=== PATIENT | male | born 1930 | race Caucasian/White ===

== ENCOUNTER 2016-09-21 15:23 | Emergency (ER) | payer MEDICARE, OTHER ==
[~2016-09-21 15:23] MED LIST: /NITR4TASL SL; ATOR40TA PO; AUGM875T27 PO; FLAG500T PO; GLIM1TAB PO; LIPI20TA PO; METF-700 PO; NORCOTAB PO; ONDA1TAB15 PO; PRAD150C PO; RAMI10CA PO; TYLE325T5 PO; [UNRECOGNIZED DRUG - CODE] PO
[2016-09-21] MEDS ORDERED: ONDANSETRON 4MG/2ML VIAL (J2405) As Ordered ONE ×2 (15:57→16:35)
[2016-09-21] MEDS ORDERED: MORPHINE 4 MG/ML 1ML SYRINGE As Ordered ONE (15:57)
[2016-09-21 16:17] LABS: BASO # 0.2 K/mm3 (0.0-0.2); BASO % 1.4 % (0.0-1.0); EOS # 0.1 K/mm3 (0.0-0.50); EOS % 0.8 % (0.0-3.0); LARGE UNSTAINED CELL # 0.2 K/mm3 (0.0-0.4); LARGE UNSTAINED CELL % 1.3 % (0.0-4.0); LYMPH % 6.1 % (24.0-44.0); MEAN CORPUSCULAR HEMOGLOBIN 33.5 pg (27.0-33.0); MEAN CORPUSCULAR HGB CONC 33.8 g/dl (32.0-36.5); MONO # 0.6 K/mm3 (0.0-0.8); MONO % 4.8 % (0.0-5.0); NEUTROPHILS # 11.2 K/mm3 (1.8-7.7); NEUTROPHILS % 85.7 % (36.0-66.0); PLATELET COUNT, AUTOMATED 218 k/mm3 (150-450); RED CELL DISTRIBUTION WIDTH 14.1 % (11.5-14.5); WHITE BLOOD COUNT 13.1 K/mm3 (4.0-10.0)
[2016-09-21 16:32] LABS: ALBUMIN 3.6 GM/DL (3.2-5.2); ALBUMIN/GLOBULIN RATIO 1.33 (1.00-1.93); BILIRUBIN,DIRECT 0.3 MG/DL (0.0-0.2); BILIRUBIN,TOTAL 1.6 MG/DL (0.2-1.0); CALCIUM LEVEL 8.3 MG/DL (8.8-10.2); CREATININE FOR GFR 1.37 MG/DL (0.70-1.30); GLOMERULAR FILTRATION RATE 52.7 (>35); POTASSIUM SERUM 4.2 MEQ/L (3.5-5.1); TOTAL PROTEIN 6.3 GM/DL (6.4-8.2)
[2016-09-21] MEDS ORDERED: GASTROGRAFIN SOLUTION 30ML (Q9963) As Ordered ONE (16:50)
[2016-09-21] MEDS ORDERED: ISOVUE-370 76% 100ML VIAL (Q9967) As Ordered ONE (18:31)
--- NOTE | 2016-09-21 20:50 | REPUSA ---
CLINICAL HISTORY: Abdomen pain. TECHNIQUE: Multiple axial CT images were obtained through the abdomen and pelvis after administratio n of oral and intravenous contrast material. COMMENTS: Comparison is made with the prior study dated 09/06/2016. Note is made of several hypoenhancing hepatic lesions, some demonstrates partial peripheral interrupt ed nodular enhancement most compatible with hemangiomas. There is no intra or extrahepatic biliary d uctal dilatation. The spleen is normal. Several calcified gallstones are present. The pancreas is of normal contour and attenuation characteristics. There is no evidence of adrenal mass. Left perin ephric stranding is seen. Several small bilateral cortical renal cysts are present. Both kidneys demonstrate prompt and equal nephrograms. The kidneys are normal in size, shape and con figuration. There is no evidence of renal or ureteral mass. A 4.5 x 3.5 mm calculus is present in t he distal left ureter just several centimeter above the UVJ. It producing mild to moderate hydrourete ronephrosis. Left perinephric stranding is seen. Several small bilateral cortical renal cysts are pr esent. Patient is status post appendectomy. Residual inflammatory stranding is noted in right lower quadran t. Diffuse sigmoid diverticulosis is present. There is no bowel wall thickening. No evidence for sm all or large bowel obstruction. There is no evidence of abdominal ascites or lymphadenopathy. There is sigmoid diverticulosis without definite evidence of acute diverticulitis. There is no evidence of intrinsic or extrinsic bladder mass. There is no pelvic ascites or lymphaden opathy. Images of the lung bases show no evidence of pleural or parenchymal mass. There are no pleural effus ions. Pacemaker leads are present. Bibasilar scarring is noted. Prostate gland is severely enlarged measuring 7 cm contains calcification. The bony structures are free of lytic or blastic lesions. Multilevel degenerative changes are seen i nvolving the thoracolumbar spine. Scattered calcifications are seen involving the aorta and major branches compatible with atherosclero sis. Small hiatal hernia is seen. IMPRESSION: 1. Distal left ureteral calculus which is producing hydroureteronephrosis. 2. Status post appendicectomy. 3. Cholelithiasis. 4. Massive prostatomegaly. 5. Small hiatal hernia is seen. 6. Liver appears lobulated suggesting cirrhosis. Hepatic lesion as discussed above may represent he mangiomas although consider short term follow up. Thank you for your kind referral of this patient. We appreciate the opportunity to participate in [facility] s patient's care.
[2016-09-21] MEDS ORDERED: TAMSULOSIN 0.4 MG CAP As Ordered ONE (22:22)
--- NOTE | 2016-09-21 22:36 | EDDOCDS ---
Nurse's Notes [facility] Name: Silvino Regan Age: 86 yrs Sex: Male : 1930 Arrival Date: 09/21/2016 Time: 15:23 Bed 17 Private MD: Mack Rothman R. Diagnosis: Calculus of ureter Presentation: 09/21 15:25 Presenting complaint: Child states: n/v, abdominal pain, onset today. appendectomy done ead a few days before July. Daughter reports bruising to abdomen and bleeding from incisions. Surgery done by Dr. Neil. Adult Sepsis Screening: The patient does not have new or worsening altered mentation. Patient's respiratory rate is less than 22. Systolic blood pressure is greater than 100. Patient has a qSOFA score of 0- Negative Sepsis Screen. Suicide/Homicide risk assessment- the patient denies having any suicidal and/or homicidal ideations and does not present with any other emotional, behavioral or mental health complaints. Status: Patient is not a central services tech or dependent. Transition of care: patient was not received from another setting of care. 15:25 Acuity: ROMÁN Level 3 ead 15:25 Method Of Arrival: Walkin/Carried/Asstd ead 16:28 Presenting complaint: daughter reports patient had stopped antibiotic at some point. kr3 Triage Assessment: 15:31 General: Appears in no apparent distress, comfortable, well nourished, well groomed, ead Behavior is appropriate for age, cooperative, pleasant. Pain: Location: abdomen Pain currently is 5 out of 10 on a pain scale. Neurological: Level of Consciousness is awake, alert, obeys commands, Oriented to person, place, time. Respiratory: Airway is patent Respiratory effort is even, unlabored. GI: Reports lower abdominal pain, nausea, vomiting. Derm: Skin is pink, warm & dry. Historical: - Allergies: no known allergies; - Home Meds: 1. atorvastatin 40 mg oral tab 1 tab once daily (Last dose: 09/20/2016) 2. glimepiride 1 mg Oral tab 1 tab once daily (Last dose: 09/20/2016) 3. metformin 500 mg Oral tab 2 tabs nightly (Last dose: 09/20/2016) 4. ramipril 10 mg Oral cap 1 cap once daily (Last dose: 09/20/2016) 5. metronidazole 500 mg Oral tab 1 tab 3 times per day 6. hydrocodone-acetaminophen 5-325 mg Oral tab every 4-6 hours (Last dose: 09/21/2016 15:00) 7. amoxicillin-pot clavulanate 875-125 mg Oral tab every 12 hours - PMHx: Diabetes - NIDDM: controlled; Hypercholesterolemia; Hypertension; SD; - PSHx: Pacemaker Insertion; CABAG x 5; - Social history: Smoking status: Patient states former smoker of tobacco. No barriers to communication noted, The patient speaks fluent Bolivian, Speaks appropriately for age. - Family history: Not pertinent. - : The pt / caregiver states he / she is not on anticoagulants. Home medication list is obtained from family members, pill bottles. - Exposure Risk Screening:: None identified. Screenin:28 Screening information is obtained from the patient, family members. Fall risk: No risks kr3 identified. Assistance ADL's: requires no assistance with activities of daily living. Abuse/DV Screen: The patient / caregiver reports he/she is: not in a situation that causes fear, pain or injury. Nutritional screening: No deficits noted. Advance Directives: Currently, there is a health care proxy, daughter. There is an active Power of Slip Laster, daughter. home support is adequate. Assessment: 15:44 General: Appears in no apparent distress, comfortable. Pain: Location: abdomen Pain kr3 currently is 4 out of 10 on a pain scale. Quality of pain is described as crampy, Pain began this afternoon. Neurological: Level of Consciousness is awake, alert. Respiratory: Respiratory effort is even, unlabored. GI: Abdomen is obese, other bruising across abdomen Bowel sounds present X 4 quads. Abd is soft and non tender. GI: Reports nausea, vomiting, several formed bowel movements this afternoon Denies constipation, diarrhea. Derm: Skin is normal. 16:27 Reassessment: Patient appears in no apparent distress at this time. reports no change kr3 in pain, denies nausea. 16:35 Reassessment: complains of return of nausea and having dry heaves, Dr Cade notified. kr3 17:49 Reassessment: Patient appears in no apparent distress at this time. tolerated CT kr3 contrast with no difficulty. GI: Denies nausea. 18:28 General: Appears states pain has essentially resolved, maybe .5/10. without nausea. jmk pleasant and conversive. comfort measures provided. awaiting CT avail.. 22:33 General: Appears in no apparent distress, comfortable. Pain: Denies pain. Neurological: mb9 Level of Consciousness is awake, alert. Respiratory: Airway is patent Respiratory effort is even, unlabored. : Reports urinary frequency. Vital Signs: 15:24 BP 174 / 84; Pulse 74; Resp 16; Temp 97; Pulse Ox 95% ; Weight 92.08 kg (M); Height 5 cmb ft. 10 in. (177.80 cm); Pain 5/10; 18:28 BP 147 / 81; Pulse 70; Resp 16; jmk 22:25 BP 147 / 82 (auto/); Pulse 69; Resp 17; Temp 97.2(O); mb9 22:27 Pulse Ox 94% ; mb9 15:24 Body Mass Index 29.13 (92.08 kg, 177.80 cm) cmb Vitals: 15:24 Log In Time: September 21, 2016 at 15:22. cmb ED Course: 15:24 Patient visited by Anayeli Marin. cmb 15:24 Mack Rothman is Private Physician. cmb 15:24 Patient moved to Waiting cmb 15:25 Patient moved to Pre RCE cmb 15:29 Triage Initiated ead 15:33 Patient moved to 17 ead 15:38 Juan Cade MD is Attending Physician. br1 15:46 The patient / caregiver is instructed regarding the plan of care and ED course. kr3 Accompanied by Family Member, Patient has correct armband on for positive identification. Placed in gown. Bed in low position. Call light in reach. Side rails up X 1. 15:54 Patient visited by Jaun Cade MD. br1 16:03 Lipase Sent. kr3 16:03 Liver Profile Sent. kr3 16:03 BMP Sent. kr3 16:03 CBC with Diff Sent. kr3 16:04 Inserted saline lock: 20 gauge in right antecubital area and blood collected. The kr3 patient tolerated the procedure well. 16:27 Patient visited by Ximena Samuel PCA. jlf 16:31 Patient name changed from Silvino\S\Mick\S\Regan\S\ to Silvino\S\J\S\Regan. EDMS 16:35 [facility] Payment Agreement was scanned into [employer] and attached to record. jpb 17:00 Patient visited by Ximena Samuel PCA. jlf 17:44 Patient visited by Ximena Samuel PCA. jlf 18:30 Patient visited by Filemon Ross,RN. jmk 19:03 Patient visited by Ambika Eubanks,RN. kr3 19:45 Deandra Hogan,RN is Primary Nurse. jp6 20:33 Patient visited by Sally Rhoades, Space Studies Faculty Member. jlm 21:03 Patient visited by Juan Cade MD. br1 21:34 CT ABD & PELVIS: IV and Oral Contrast Returned. EDMS 21:59 Patient visited by Juan Cade MD. br1 22:08 Mack Rothman is Referral Physician. br1 22:09 Roni Dow is Referral Physician. br1 22:25 Discontinued IV lock intact, bleeding controlled, pressure dressing applied. No mb9 procedures done that require assistance. Administered Medications: 16:05 Drug: Ondansetron 4 mg Route: IVP; Site: right antecubital; k 16:28 Follow up: Response: Nausea is resolved kr3 16:06 Drug: NS 0.9% 1000 ml Route: IV; Rate: 150 mL/hr; Site: right antecubital; jmk 16:06 Drug: morphine 4 mg Route: IVP; Site: right antecubital; k 16:28 Follow up: Response: No significant change. kr3 16:38 Drug: Ondansetron 4 mg [ondansetron HCl 2 mg/mL intravenous solution (2 mL)] Route: kr3 IVP; Site: right antecubital; 16:56 Follow up: Response: Nausea is decreased kr3 16:55 Drug: Diatrizoate Meglumine & Sodium 10 ml [diatrizoate meglumine and diat.sodium 66 kr3 %-10 % oral solution (10 mL)] Route: PO; 17:30 Drug: Diatrizoate Meglumine & Sodium 10 ml [diatrizoate meglumine and diat.sodium 66 kr3 %-10 % oral solution (10 mL)] Route: PO; 22:32 Drug: Tamsulosin 0.4 mg [tamsulosin 0.4 mg capsule (1 caps)] Route: PO; mb9 Order Results: Lab Order: CBC with Diff; SPEC'M 09/21/16 15:58 Test: WHITE BLOOD COUNT; Value: 13.1; Range: 4.0-10.0; Abnormal: Above high normal; Units: K/mm3; Status: F Test: RED BLOOD COUNT; Value: 3.90; Range: 4.30-6.10; Abnormal: Below low normal; Units: M/mm3; Status: F Test: HEMOGLOBIN; Value: 13.0; Range: 14.0-18.0; Abnormal: Below low normal; Units: g/dl; Status: F Test: HEMATOCRIT; Value: 38.6; Range: 42.0-52.0; Abnormal: Below low normal; Units: %; Status: F Test: MEAN CORPUSCULAR VOLUME; Value: 99.0; Range: 80.0-96.0; Abnormal: Above high normal; Units: fl; Status: F Test: MEAN CORPUSCULAR HEMOGLOBIN; Value: 33.5; Range: 27.0-33.0; Abnormal: Above high normal; Units: pg; Status: F Test: MEAN CORPUSCULAR HGB CONC; Value: 33.8; Range: 32.0-36.5; Units: g/dl; Status: F Test: RED CELL DISTRIBUTION WIDTH; Value: 14.1; Range: 11.5-14.5; Units: %; Status: F Test: PLATELET COUNT, AUTOMATED; Value: 218; Range: 150-450; Units: k/mm3; Status: F Test: NEUTROPHILS %; Value: 85.7; Range: 36.0-66.0; Abnormal: Above high normal; Units: %; Status: F Test: LYMPH %; Value: 6.1; Range: 24.0-44.0; Abnormal: Below low normal; Units: %; Status: F Test: MONO %; Value: 4.8; Range: 0.0-5.0; Units: %; Status: F Test: EOS %; Value: 0.8; Range: 0.0-3.0; Units: %; Status: F Test: BASO %; Value: 1.4; Range: 0.0-1.0; Abnormal: Above high normal; Units: %; Status: F Test: LARGE UNSTAINED CELL %; Value: 1.3; Range: 0.0-4.0; Units: %; Status: F Test: NEUTROPHILS #; Value: 11.2; Range: 1.8-7.7; Abnormal: Above high normal; Units: K/mm3; Status: F Test: LYMPH #; Value: 1.0; Range: 1.5-4.5; Abnormal: Below low normal; Units: K/mm3; Status: F Test: MONO #; Value: 0.6; Range: 0.0-0.8; Units: K/mm3; Status: F Test: EOS #; Value: 0.1; Range: 0.0-0.50; Units: K/mm3; Status: F Test: BASO #; Value: 0.2; Range: 0.0-0.2; Units: K/mm3; Status: F Test: LARGE UNSTAINED CELL #; Value: 0.2; Range: 0.0-0.4; Units: K/mm3; Status: F Lab Order: [facility] 09/21/16 15:58 Test: GLUCOSE, FASTING; Value: 143; Range: 83-110; Abnormal: Above high normal; Units: MG/DL; Status: F Test: BLOOD UREA NITROGEN; Value: 16; Range: 7-18; Units: MG/DL; Status: F Test: CREATININE FOR GFR; Value: 1.37; Range: 0.70-1.30; Abnormal: Above high normal; Units: MG/DL; Status: F Test: GLOMERULAR FILTRATION RATE; Value: 52.7; Range: >35; Status: F Test: SODIUM LEVEL; Value: 141; Range: 136-145; Units: MEQ/L; Status: F Test: POTASSIUM SERUM; Value: 4.2; Range: 3.5-5.1; Units: MEQ/L; Status: F Test: CHLORIDE LEVEL; Value: 104; Range: 98-107; Units: MEQ/L; Status: F Test: CARBON DIOXIDE LEVEL; Value: 28; Range: 21-32; Units: MEQ/L; Status: F Test: ANION GAP; Value: 9; Range: 8-16; Units: MEQ/L; Status: F Test: CALCIUM LEVEL; Value: 8.3; Range: 8.8-10.2; Abnormal: Below low normal; Units: MG/DL; Status: F Test Note: ; Units are mL/min/1.73 m2 Chronic Kidney Disease Staging per NKF: Stage I & II GFR >=60 Normal to Mildly Decreased Stage III GFR 30-59 Moderately Decreased Stage IV GFR 15-29 Severely Decreased Stage V GFR <15 Very Little GFR Left ESRD GFR <15 on FLIGHT SIMULATOR TEACHER Lab Order: Liver Profile; SPEC'M 09/21/16 15:58 Test: AST/SGOT; Value: 21; Range: 15-37; Units: U/L; Status: F Test: ALT/SGPT; Value: 30; Range: 12-78; Units: U/L; Status: F Test: ALKALINE PHOSPHATASE; Value: 74; Range: 45-117; Units: U/L; Status: F Test: BILIRUBIN,TOTAL; Value: 1.6; Range: 0.2-1.0; Abnormal: Above high normal; Units: MG/DL; Status: F Test: BILIRUBIN,DIRECT; Value: 0.3; Range: 0.0-0.2; Abnormal: Above high normal; Units: MG/DL; Status: F Test: TOTAL PROTEIN; Value: 6.3; Range: 6.4-8.2; Abnormal: Below low normal; Units: GM/DL; Status: F Test: ALBUMIN; Value: 3.6; Range: 3.2-5.2; Units: GM/DL; Status: F Test: ALBUMIN/GLOBULIN RATIO; Value: 1.33; Range: 1.00-1.93; Status: F Lab Order: Lipase; SPEC'M 09/21/16 15:58 Test: LIPASE; Value: 118; Range: 73-393; Units: U/L; Status: F Lab Order: Urinalysis; SPEC'M 09/21/16 20:29 Test: APPEARANCE, URINE; Value: CLEAR; Range: CLEAR; Status: F Test: COLOR, URINE; Value: YELLOW; Range: YELLOW; Status: F Test: PH,URINE; Value: 7.0; Range: 5.0-9.0; Units: UNITS; Status: F Test: SPECIFIC GRAVITY URINE AUTO; Value: 1.043; Range: 1.002-1.035; Status: F Test: PROTEIN, URINE AUTO; Value: NEGATIVE; Range: NEGATIVE; Units: mg/dL; Status: F Test: GLUCOSE, URINE (UA) AUTO; Value: NEGATIVE; Range: NEGATIVE; Units: mg/dL; Status: F Test: KETONE, URINE AUTO; Value: NEGATIVE; Range: NEGATIVE; Units: mg/dL; Status: F Test: UROBILINOGEN, URINE AUTO; Value: 0.2; Range: 0.0-2.0; Units: mg/dL; Status: F Test: BILIRUBIN, URINE AUTO; Value: NEGATIVE; Range: NEGATIVE; Status: F Test: NITRITE, URINE AUTO; Value: NEGATIVE; Range: NEGATIVE; Status: F Test: LEUKOCYTE ESTERASE, URINE AUTO; Value: 1+; Range: NEGATIVE; Abnormal: Above high normal; Status: F Test: BLOOD, URINE BLOOD; Value: 2+; Range: NEGATIVE; Abnormal: Above high normal; Status: F Test: WBC, URINE AUTO; Value: 8; Range: 0-3; Abnormal: Above high normal; Units: /HPF; Status: F Test: RBC, URINE AUTO; Value: 27; Range: 0-3; Abnormal: Above high normal; Units: /HPF; Status: F Test: BACTERIA, URINE AUTO; Value: NEGATIVE; Range: NEGATIVE; Status: F Test: SQUAMOUS EPITHELIAL CELL UR AU; Value: 0; Range: 0-6; Units: /HPF; Status: F Test: HYALINE CAST, URINE AUTO; Value: 0; Range: 0-1; Units: /LPF; Status: F Radiology Order: CT ABD & PELVIS: IV and Oral Contrast Test: CT ABD & PELVIS: IV and Oral Contrast REASON FOR EXAMINATION: Abdomen Pain; ; CLINICAL HISTORY: Abdomen pain.; ; TECHNIQUE: Multiple axial CT images were obtained through the abdomen and pelvis after administratio; n of oral and intravenous contrast material.; ; COMMENTS:; Comparison is made with the prior study dated 09/06/2016.; ; Note is made of several hypoenhancing hepatic lesions, some demonstrates partial peripheral interrupt; ed nodular enhancement most compatible with hemangiomas. There is no intra or extrahepatic biliary d; uctal dilatation. The spleen is normal. Several calcified gallstones are present. The pancreas is; of normal contour and attenuation characteristics. There is no evidence of adrenal mass. Left perin; ephric stranding is seen. Several small bilateral cortical renal cysts are present.; ; Both kidneys demonstrate prompt and equal nephrograms. The kidneys are normal in size, shape and con; figuration. There is no evidence of renal or ureteral mass. A 4.5 x 3.5 mm calculus is present in t; he distal left ureter just several centimeter above the UVJ. It producing mild to moderate hydrourete; ronephrosis. Left perinephric stranding is seen. Several small bilateral cortical renal cysts are pr; esent.; ; Patient is status post appendectomy. Residual inflammatory stranding is noted in right lower quadran; t. Diffuse sigmoid diverticulosis is present. There is no bowel wall thickening. No evidence for sm; all or large bowel obstruction. There is no evidence of abdominal ascites or lymphadenopathy. There; is sigmoid diverticulosis without definite evidence of acute diverticulitis.; ; There is no evidence of intrinsic or extrinsic bladder mass. There is no pelvic ascites or lymphaden; opathy.; ; Images of the lung bases show no evidence of pleural or parenchymal mass. There are no pleural effus; ions. Pacemaker leads are present. Bibasilar scarring is noted.; ; Prostate gland is severely enlarged measuring 7 cm contains calcification.; ; The bony structures are free of lytic or blastic lesions. Multilevel degenerative changes are seen i; nvolving the thoracolumbar spine.; ; Scattered calcifications are seen involving the aorta and major branches compatible with atherosclero; sis.; ; Small hiatal hernia is seen.; ; IMPRESSION:; 1. Distal left ureteral calculus which is producing hydroureteronephrosis.; 2. Status post appendicectomy.; 3. Cholelithiasis.; 4. Massive prostatomegaly.; 5. Small hiatal hernia is seen.; 6. Liver appears lobulated suggesting cirrhosis. Hepatic lesion as discussed above may represent he; mangiomas although consider short term follow up.; ; ; Thank you for your kind referral of this patient. We appreciate the opportunity to participate in thi; s patient's care.; ; ; Outcome: 19:02 CT Study completed. kr3 22:10 Discharge ordered by Provider. br1 22:25 Discharge Assessment: Patient awake, alert and oriented x 3. No cognitive and/or mb9 functional deficits noted. Patient verbalized understanding of disposition instructions. patient administered narcotics - no. The following High Risk Discharge criteria are identified: None. Discharged to home ambulatory. Condition: good Condition: stable Condition: improved. Discharge instructions given to patient, Instructed on discharge instructions, follow up and referral plans. medication usage, Demonstrated understanding of instructions, medications, Pt was receptive of discharge instructions/ teaching. Prescriptions given X 2. Property :Personal belongings accompany Pt. 22:34 Instructed on Pt instructed to not take his metformin for 48 hours. pt [facility] for further guidance in regards to his metformin. 22:36 Patient left the ED. jarod Signatures: Dispatcher [employer] EDMS Filemon Ross,RN RN Ambika Messer,RN RN kr3 Juan Cade MD MD br1 Ryne Rich Chelsea cmXimena Cáhvez, TERRITORY ACCOUNT EXECUTIVE TERRITORY ACCOUNT EXECUTIVE estradaf Shi Rankin,RN RN Sally Connolly, Space Studies Faculty Member Unit Mak PatrickRN RN mb9 Deandra Hogan,RN RN jp6 [facility]
--- NOTE | 2016-09-21 22:36 | EDDOCDS ---
Physician Documentation [facility] Name: Silvino Regan Age: 86 yrs Sex: Male : 1930 Arrival Date: 09/21/2016 Time: 15:23 Bed 17 Private MD: Mack Rothman R. Disposition: 09/21/16 22:10 Discharged to Home/Self Care. Impression: Calculus of ureter. - Condition is Stable. - Discharge Instructions: Kidney Stones. - Prescriptions for Flomax 0.4 mg Oral Capsule, Sust. Release 24 hr - take 1 capsule by ORAL route once daily 1/2 hour following the same meal each day; 30 capsule. ZOFRAN ODT 4 mg - dissolve 1 tablet by ORAL route 4 times per day As needed do not chew, do not swallow whole; 10 tablet. - Medication Reconciliation, Local Pharmacy Hours form. - Follow up: Mack Rothman; When: 2 - 3 days; Reason: Recheck today's complaints. Follow up: Roni Dow; When: 2 - 3 days; Reason: Recheck today's complaints. - Problem is new. - Symptoms have improved. - Notes: You were seen in the ED for abdominal pain. Bloodwork along with urine tests showed no acute findings but CT scan of the abdomen revealed a kidney stone nearing the bladder on the left side. We have discussed the case with Urology as well.
As you are feeling better you may return home. Encourage plenty of fluids and take the medicine Flomax daily to assist in passing the stone. You may take Zofran as needed for nausea. You may continue your hydrocodone as needed for pain. Call the Urology office in the morning to be seen for ongoingcare. Return to the ED for any worsening or uncontrolled pain, fever, inability to tolerate oral foods or lquids or any other concerns Historical: - Allergies: no known allergies; - Home Meds: 1. atorvastatin 40 mg oral tab 1 tab once daily (Last dose: 09/20/2016) 2. glimepiride 1 mg Oral tab 1 tab once daily (Last dose: 09/20/2016) 3. metformin 500 mg Oral tab 2 tabs nightly (Last dose: 09/20/2016) 4. ramipril 10 mg Oral cap 1 cap once daily (Last dose: 09/20/2016) 5. metronidazole 500 mg Oral tab 1 tab 3 times per day 6. hydrocodone-acetaminophen 5-325 mg Oral tab every 4-6 hours (Last dose: 09/21/2016 15:00) 7. amoxicillin-pot clavulanate 875-125 mg Oral tab every 12 hours - PMHx: Diabetes - NIDDM: controlled; Hypercholesterolemia; Hypertension; SC; - PSHx: Pacemaker Insertion; CABAG x 5; - Social history: Smoking status: Patient states former smoker of tobacco. No barriers to communication noted, The patient speaks fluent German, Speaks appropriately for age. - Family history: Not pertinent. - : The pt / caregiver states he / she is not on anticoagulants. Home medication list is obtained from family members, pill bottles. - Exposure Risk Screening:: None identified. Vital Signs: 09/21 15:24 BP 174 / 84; Pulse 74; Resp 16; Temp 97; Pulse Ox 95% ; Weight 92.08 kg / 203 lbs (M); cmb Height 5 ft. 10 in. (177.80 cm); Pain 5/10; 18:28 BP 147 / 81; Pulse 70; Resp 16; jmk 22:25 BP 147 / 82 (auto/); Pulse 69; Resp 17; Temp 97.2(O); mb9 22:27 Pulse Ox 94% ; mb9 15:24 Body Mass Index 29.13 (92.08 kg, 177.80 cm) cmb MDM: 15:55 IV Saline Lock ordered. br1 15:55 NS 0.9% 1000 ml IV at 150 mL/hr continuous ordered. br1 15:55 morphine 4 mg IVP once ordered. br1 15:55 Ondansetron 4 mg IVP once ordered. br1 15:56 CBC with Diff Ordered. EDMS 15:56 BMP Ordered. EDMS 15:56 Liver Profile Ordered. EDMS 15:56 Lipase Ordered. EDMS 16:04 Urinalysis Ordered. EDMS 16:04 Urine Culture Ordered. EDMS 16:09 Financial registration complete. jpb 16:09 Undo -Financial registration. jpb 16:34 Financial registration complete. jpb 16:35 [facility] Payment Agreement was scanned into dateIITians and attached to record. jpb 16:36 Ondansetron 4 mg IVP once ordered. br1 16:36 CBC with Diff Reviewed. br1 16:36 BMP Reviewed. br1 16:36 Liver Profile Reviewed. br1 16:36 Lipase Reviewed. br1 16:38 CT ABD & PELVIS: IV and Oral Contrast Ordered. EDMS 16:49 Diatrizoate Meglumine & Sodium Liquid 10 ml PO once; mix in 290cc of water give at 5PM kr3 ordered. 16:49 Diatrizoate Meglumine & Sodium Liquid 10 ml PO once; mix in 290cc of water give at kr3 5:30PM ordered. 20:58 Urinalysis Reviewed. br1 21:04 Fluid Challenge ordered. br1 22:04 Tamsulosin Extended Release 24 hour Capsule 0.4 mg PO once ordered. br1 Administered Medications: 16:05 Drug: Ondansetron 4 mg Route: IVP; Site: right antecubital; [facility] 16:28 Follow up: Response: Nausea is resolved kr3 16:06 Drug: NS 0.9% 1000 ml Route: IV; Rate: 150 mL/hr; Site: right antecubital; [facility] 16:06 Drug: morphine 4 mg Route: IVP; Site: right antecubital; [facility] 16:28 Follow up: Response: No significant change. kr3 16:38 Drug: Ondansetron 4 mg [ondansetron HCl 2 mg/mL intravenous solution (2 mL)] Route: kr3 IVP; Site: right antecubital; 16:56 Follow up: Response: Nausea is decreased kr3 16:55 Drug: Diatrizoate Meglumine & Sodium 10 ml [diatrizoate meglumine and diat.sodium 66 kr3 %-10 % oral solution (10 mL)] Route: PO; 17:30 Drug: Diatrizoate Meglumine & Sodium 10 ml [diatrizoate meglumine and diat.sodium 66 kr3 %-10 % oral solution (10 mL)] Route: PO; 22:32 Drug: Tamsulosin 0.4 mg [tamsulosin 0.4 mg capsule (1 caps)] Route: PO; mb9 Signatures: Dispatcher MedHost EDMS Filemon Ross RN RN jmk Ambika Eubanks RN RN kr3 Juan Cade MD MD br1 Ryne Rich Emily, RN RN ead Belles, Michael, RN RN mb9 The chart was reviewed and I authenticate all verbal orders and agree with the evaluation and treatment provided.Attachments: 16:35 [facility] [place] jpb [email or web address]
--- NOTE | 2016-09-23 23:36 | EDDOCDS ---
Nurse's Notes [facility] Name: Silvino Regan Age: 86 yrs Sex: Male : 1930 Arrival Date: 09/21/2016 Time: 15:23 Bed 17 Private MD: Mack Rothman R. Diagnosis: Calculus of ureter Presentation: 09/21 15:25 Presenting complaint: Child states: n/v, abdominal pain, onset today. appendectomy done ead a few days before July. Daughter reports bruising to abdomen and bleeding from incisions. Surgery done by Dr. Neil. Adult Sepsis Screening: The patient does not have new or worsening altered mentation. Patient's respiratory rate is less than 22. Systolic blood pressure is greater than 100. Patient has a qSOFA score of 0- Negative Sepsis Screen. Suicide/Homicide risk assessment- the patient denies having any suicidal and/or homicidal ideations and does not present with any other emotional, behavioral or mental health complaints. Status: Patient is not a conference services manager or dependent. Transition of care: patient was not received from another setting of care. 15:25 Acuity: ROMÁN Level 3 ead 15:25 Method Of Arrival: Walkin/Carried/Asstd ead 16:28 Presenting complaint: daughter reports patient had stopped antibiotic at some point. kr3 Triage Assessment: 15:31 General: Appears in no apparent distress, comfortable, well nourished, well groomed, ead Behavior is appropriate for age, cooperative, pleasant. Pain: Location: abdomen Pain currently is 5 out of 10 on a pain scale. Neurological: Level of Consciousness is awake, alert, obeys commands, Oriented to person, place, time. Respiratory: Airway is patent Respiratory effort is even, unlabored. GI: Reports lower abdominal pain, nausea, vomiting. Derm: Skin is pink, warm & dry. Historical: - Allergies: no known allergies; - Home Meds: 1. atorvastatin 40 mg oral tab 1 tab once daily (Last dose: 09/20/2016) 2. glimepiride 1 mg Oral tab 1 tab once daily (Last dose: 09/20/2016) 3. metformin 500 mg Oral tab 2 tabs nightly (Last dose: 09/20/2016) 4. ramipril 10 mg Oral cap 1 cap once daily (Last dose: 09/20/2016) 5. metronidazole 500 mg Oral tab 1 tab 3 times per day 6. hydrocodone-acetaminophen 5-325 mg Oral tab every 4-6 hours (Last dose: 09/21/2016 15:00) 7. amoxicillin-pot clavulanate 875-125 mg Oral tab every 12 hours - PMHx: Diabetes - NIDDM: controlled; Hypercholesterolemia; Hypertension; ND; - PSHx: Pacemaker Insertion; CABAG x 5; - Social history: Smoking status: Patient states former smoker of tobacco. No barriers to communication noted, The patient speaks fluent Cook Islander, Speaks appropriately for age. - Family history: Not pertinent. - : The pt / caregiver states he / she is not on anticoagulants. Home medication list is obtained from family members, pill bottles. - Exposure Risk Screening:: None identified. Screenin:28 Screening information is obtained from the patient, family members. Fall risk: No risks kr3 identified. Assistance ADL's: requires no assistance with activities of daily living. Abuse/DV Screen: The patient / caregiver reports he/she is: not in a situation that causes fear, pain or injury. Nutritional screening: No deficits noted. Advance Directives: Currently, there is a health care proxy, daughter. There is an active Power of Fundraising Director, daughter. home support is adequate. Assessment: 15:44 General: Appears in no apparent distress, comfortable. Pain: Location: abdomen Pain kr3 currently is 4 out of 10 on a pain scale. Quality of pain is described as crampy, Pain began this afternoon. Neurological: Level of Consciousness is awake, alert. Respiratory: Respiratory effort is even, unlabored. GI: Abdomen is obese, other bruising across abdomen Bowel sounds present X 4 quads. Abd is soft and non tender. GI: Reports nausea, vomiting, several formed bowel movements this afternoon Denies constipation, diarrhea. Derm: Skin is normal. 16:27 Reassessment: Patient appears in no apparent distress at this time. reports no change kr3 in pain, denies nausea. 16:35 Reassessment: complains of return of nausea and having dry heaves, Dr Cade notified. kr3 17:49 Reassessment: Patient appears in no apparent distress at this time. tolerated CT kr3 contrast with no difficulty. GI: Denies nausea. 18:28 General: Appears states pain has essentially resolved, maybe .5/10. without nausea. jmk pleasant and conversive. comfort measures provided. awaiting CT avail.. 22:33 General: Appears in no apparent distress, comfortable. Pain: Denies pain. Neurological: mb9 Level of Consciousness is awake, alert. Respiratory: Airway is patent Respiratory effort is even, unlabored. : Reports urinary frequency. Vital Signs: 15:24 BP 174 / 84; Pulse 74; Resp 16; Temp 97; Pulse Ox 95% ; Weight 92.08 kg (M); Height 5 cmb ft. 10 in. (177.80 cm); Pain 5/10; 18:28 BP 147 / 81; Pulse 70; Resp 16; jmk 22:25 BP 147 / 82 (auto/); Pulse 69; Resp 17; Temp 97.2(O); mb9 22:27 Pulse Ox 94% ; mb9 15:24 Body Mass Index 29.13 (92.08 kg, 177.80 cm) cmb Vitals: 15:24 Log In Time: September 21, 2016 at 15:22. cmb ED Course: 15:24 Patient visited by Anayeli Marin. cmb 15:24 Mack Rothman is Private Physician. cmb 15:24 Patient moved to Waiting cmb 15:25 Patient moved to Pre RCE cmb 15:29 Triage Initiated ead 15:33 Patient moved to 17 ead 15:38 Juan Cade MD is Attending Physician. br1 15:46 The patient / caregiver is instructed regarding the plan of care and ED course. kr3 Accompanied by Family Member, Patient has correct armband on for positive identification. Placed in gown. Bed in low position. Call light in reach. Side rails up X 1. 15:54 Patient visited by Juan Cade MD. br1 16:03 Lipase Sent. kr3 16:03 Liver Profile Sent. kr3 16:03 BMP Sent. kr3 16:03 CBC with Diff Sent. kr3 16:04 Inserted saline lock: 20 gauge in right antecubital area and blood collected. The kr3 patient tolerated the procedure well. 16:27 Patient visited by Ximena Samuel PCA. jlf 16:31 Patient name changed from Silvino\S\Mick\S\Regan\S\ to Silvino\S\J\S\Regan. EDMS 16:35 [facility] Payment Agreement was scanned into [employer] and attached to record. jpb 17:00 Patient visited by Ximena Samuel PCA. jlf 17:44 Patient visited by Ximena Samuel PCA. jlf 18:30 Patient visited by Filemon Ross,RN. jmk 19:03 Patient visited by Ambika Eubanks,RN. kr3 19:45 Deandra Hogan,RN is Primary Nurse. jp6 20:33 Patient visited by Sally Rhoades, Last Repairer Helper. jlm 21:03 Patient visited by Juan Cade MD. br1 21:34 CT ABD & PELVIS: IV and Oral Contrast Returned. EDMS 21:59 Patient visited by Juan Cade MD. br1 22:08 Mack Rothman is Referral Physician. br1 22:09 Roni Dow is Referral Physician. br1 22:25 Discontinued IV lock intact, bleeding controlled, pressure dressing applied. No mb9 procedures done that require assistance. 09/23 08:32 T-Sheet-- Draft Copy was scanned into [employer]an[employer] and attached to record. gb Administered Medications: 09/21 16:05 Drug: Ondansetron 4 mg Route: IVP; Site: right antecubital; [facility] 16:28 Follow up: Response: Nausea is resolved kr3 16:06 Drug: NS 0.9% 1000 ml Route: IV; Rate: 150 mL/hr; Site: right antecubital; jmk 16:06 Drug: morphine 4 mg Route: IVP; Site: right antecubital; [facility] 16:28 Follow up: Response: No significant change. kr3 16:38 Drug: Ondansetron 4 mg [ondansetron HCl 2 mg/mL intravenous solution (2 mL)] Route: kr3 IVP; Site: right antecubital; 16:56 Follow up: Response: Nausea is decreased kr3 16:55 Drug: Diatrizoate Meglumine & Sodium 10 ml [diatrizoate meglumine and diat.sodium 66 kr3 %-10 % oral solution (10 mL)] Route: PO; 17:30 Drug: Diatrizoate Meglumine & Sodium 10 ml [diatrizoate meglumine and diat.sodium 66 kr3 %-10 % oral solution (10 mL)] Route: PO; 22:32 Drug: Tamsulosin 0.4 mg [tamsulosin 0.4 mg capsule (1 caps)] Route: PO; mb9 Order Results: Lab Order: CBC with Diff; SPEC'M 09/21/16 15:58 Test: WHITE BLOOD COUNT; Value: 13.1; Range: 4.0-10.0; Abnormal: Above high normal; Units: K/mm3; Status: F Test: RED BLOOD COUNT; Value: 3.90; Range: 4.30-6.10; Abnormal: Below low normal; Units: M/mm3; Status: F Test: HEMOGLOBIN; Value: 13.0; Range: 14.0-18.0; Abnormal: Below low normal; Units: g/dl; Status: F Test: HEMATOCRIT; Value: 38.6; Range: 42.0-52.0; Abnormal: Below low normal; Units: %; Status: F Test: MEAN CORPUSCULAR VOLUME; Value: 99.0; Range: 80.0-96.0; Abnormal: Above high normal; Units: fl; Status: F Test: MEAN CORPUSCULAR HEMOGLOBIN; Value: 33.5; Range: 27.0-33.0; Abnormal: Above high normal; Units: pg; Status: F Test: MEAN CORPUSCULAR HGB CONC; Value: 33.8; Range: 32.0-36.5; Units: g/dl; Status: F Test: RED CELL DISTRIBUTION WIDTH; Value: 14.1; Range: 11.5-14.5; Units: %; Status: F Test: PLATELET COUNT, AUTOMATED; Value: 218; Range: 150-450; Units: k/mm3; Status: F Test: NEUTROPHILS %; Value: 85.7; Range: 36.0-66.0; Abnormal: Above high normal; Units: %; Status: F Test: LYMPH %; Value: 6.1; Range: 24.0-44.0; Abnormal: Below low normal; Units: %; Status: F Test: MONO %; Value: 4.8; Range: 0.0-5.0; Units: %; Status: F Test: EOS %; Value: 0.8; Range: 0.0-3.0; Units: %; Status: F Test: BASO %; Value: 1.4; Range: 0.0-1.0; Abnormal: Above high normal; Units: %; Status: F Test: LARGE UNSTAINED CELL %; Value: 1.3; Range: 0.0-4.0; Units: %; Status: F Test: NEUTROPHILS #; Value: 11.2; Range: 1.8-7.7; Abnormal: Above high normal; Units: K/mm3; Status: F Test: LYMPH #; Value: 1.0; Range: 1.5-4.5; Abnormal: Below low normal; Units: K/mm3; Status: F Test: MONO #; Value: 0.6; Range: 0.0-0.8; Units: K/mm3; Status: F Test: EOS #; Value: 0.1; Range: 0.0-0.50; Units: K/mm3; Status: F Test: BASO #; Value: 0.2; Range: 0.0-0.2; Units: K/mm3; Status: F Test: LARGE UNSTAINED CELL #; Value: 0.2; Range: 0.0-0.4; Units: K/mm3; Status: F Lab Order: [facility]; SPEC'M 09/21/16 15:58 Test: GLUCOSE, FASTING; Value: 143; Range: 83-110; Abnormal: Above high normal; Units: MG/DL; Status: F Test: BLOOD UREA NITROGEN; Value: 16; Range: 7-18; Units: MG/DL; Status: F Test: CREATININE FOR GFR; Value: 1.37; Range: 0.70-1.30; Abnormal: Above high normal; Units: MG/DL; Status: F Test: GLOMERULAR FILTRATION RATE; Value: 52.7; Range: >35; Status: F Test: SODIUM LEVEL; Value: 141; Range: 136-145; Units: MEQ/L; Status: F Test: POTASSIUM SERUM; Value: 4.2; Range: 3.5-5.1; Units: MEQ/L; Status: F Test: CHLORIDE LEVEL; Value: 104; Range: 98-107; Units: MEQ/L; Status: F Test: CARBON DIOXIDE LEVEL; Value: 28; Range: 21-32; Units: MEQ/L; Status: F Test: ANION GAP; Value: 9; Range: 8-16; Units: MEQ/L; Status: F Test: CALCIUM LEVEL; Value: 8.3; Range: 8.8-10.2; Abnormal: Below low normal; Units: MG/DL; Status: F Test Note: ; Units are mL/min/1.73 m2 Chronic Kidney Disease Staging per NKF: Stage I & II GFR >=60 Normal to Mildly Decreased Stage III GFR 30-59 Moderately Decreased Stage IV GFR 15-29 Severely Decreased Stage V GFR <15 Very Little GFR Left ESRD GFR <15 on MAKEUP EDITOR Lab Order: Liver Profile; [facility]' 09/21/16 15:58 Test: AST/SGOT; Value: 21; Range: 15-37; Units: U/L; Status: F Test: ALT/SGPT; Value: 30; Range: 12-78; Units: U/L; Status: F Test: ALKALINE PHOSPHATASE; Value: 74; Range: 45-117; Units: U/L; Status: F Test: BILIRUBIN,TOTAL; Value: 1.6; Range: 0.2-1.0; Abnormal: Above high normal; Units: MG/DL; Status: F Test: BILIRUBIN,DIRECT; Value: 0.3; Range: 0.0-0.2; Abnormal: Above high normal; Units: MG/DL; Status: F Test: TOTAL PROTEIN; Value: 6.3; Range: 6.4-8.2; Abnormal: Below low normal; Units: GM/DL; Status: F Test: ALBUMIN; Value: 3.6; Range: 3.2-5.2; Units: GM/DL; Status: F Test: ALBUMIN/GLOBULIN RATIO; Value: 1.33; Range: 1.00-1.93; Status: F Lab Order: Lipase; [facility]' 09/21/16 15:58 Test: LIPASE; Value: 118; Range: 73-393; Units: U/L; Status: F Lab Order: Urinalysis; [facility] 09/21/16 20:29 Test: APPEARANCE, URINE; Value: CLEAR; Range: CLEAR; Status: F Test: COLOR, URINE; Value: YELLOW; Range: YELLOW; Status: F Test: PH,URINE; Value: 7.0; Range: 5.0-9.0; Units: UNITS; Status: F Test: SPECIFIC GRAVITY URINE AUTO; Value: 1.043; Range: 1.002-1.035; Status: F Test: PROTEIN, URINE AUTO; Value: NEGATIVE; Range: NEGATIVE; Units: mg/dL; Status: F Test: GLUCOSE, URINE (UA) AUTO; Value: NEGATIVE; Range: NEGATIVE; Units: mg/dL; Status: F Test: KETONE, URINE AUTO; Value: NEGATIVE; Range: NEGATIVE; Units: mg/dL; Status: F Test: UROBILINOGEN, URINE AUTO; Value: 0.2; Range: 0.0-2.0; Units: mg/dL; Status: F Test: BILIRUBIN, URINE AUTO; Value: NEGATIVE; Range: NEGATIVE; Status: F Test: NITRITE, URINE AUTO; Value: NEGATIVE; Range: NEGATIVE; Status: F Test: LEUKOCYTE ESTERASE, URINE AUTO; Value: 1+; Range: NEGATIVE; Abnormal: Above high normal; Status: F Test: BLOOD, URINE BLOOD; Value: 2+; Range: NEGATIVE; Abnormal: Above high normal; Status: F Test: WBC, URINE AUTO; Value: 8; Range: 0-3; Abnormal: Above high normal; Units: /HPF; Status: F Test: RBC, URINE AUTO; Value: 27; Range: 0-3; Abnormal: Above high normal; Units: /HPF; Status: F Test: BACTERIA, URINE AUTO; Value: NEGATIVE; Range: NEGATIVE; Status: F Test: SQUAMOUS EPITHELIAL CELL UR AU; Value: 0; Range: 0-6; Units: /HPF; Status: F Test: HYALINE CAST, URINE AUTO; Value: 0; Range: 0-1; Units: /LPF; Status: F Lab Order: Urine Culture; SPEC'M 09/21/16 20:29 Test: URINE CULTURE; Value: URINE CULTURE RESULT NO GROWTH; Status: F Radiology Order: CT ABD & PELVIS: IV and Oral Contrast Test: CT ABD & PELVIS: IV and Oral Contrast REASON FOR EXAMINATION: Abdomen Pain; ; CLINICAL HISTORY: Abdomen pain.; ; TECHNIQUE: Multiple axial CT images were obtained through the abdomen and pelvis after administratio; n of oral and intravenous contrast material.; ; COMMENTS:; Comparison is made with the prior study dated 09/06/2016.; ; Note is made of several hypoenhancing hepatic lesions, some demonstrates partial peripheral interrupt; ed nodular enhancement most compatible with hemangiomas. There is no intra or extrahepatic biliary d; uctal dilatation. The spleen is normal. Several calcified gallstones are present. The pancreas is; of normal contour and attenuation characteristics. There is no evidence of adrenal mass. Left perin; ephric stranding is seen. Several small bilateral cortical renal cysts are present.; ; Both kidneys demonstrate prompt and equal nephrograms. The kidneys are normal in size, shape and con; figuration. There is no evidence of renal or ureteral mass. A 4.5 x 3.5 mm calculus is present in t; he distal left ureter just several centimeter above the UVJ. It producing mild to moderate hydrourete; ronephrosis. Left perinephric stranding is seen. Several small bilateral cortical renal cysts are pr; esent.; ; Patient is status post appendectomy. Residual inflammatory stranding is noted in right lower quadran; t. Diffuse sigmoid diverticulosis is present. There is no bowel wall thickening. No evidence for sm; all or large bowel obstruction. There is no evidence of abdominal ascites or lymphadenopathy. There; is sigmoid diverticulosis without definite evidence of acute diverticulitis.; ; There is no evidence of intrinsic or extrinsic bladder mass. There is no pelvic ascites or lymphaden; opathy.; ; Images of the lung bases show no evidence of pleural or parenchymal mass. There are no pleural effus; ions. Pacemaker leads are present. Bibasilar scarring is noted.; ; Prostate gland is severely enlarged measuring 7 cm contains calcification.; ; The bony structures are free of lytic or blastic lesions. Multilevel degenerative changes are seen i; nvolving the thoracolumbar spine.; ; Scattered calcifications are seen involving the aorta and major branches compatible with atherosclero; sis.; ; Small hiatal hernia is seen.; ; IMPRESSION:; 1. Distal left ureteral calculus which is producing hydroureteronephrosis.; 2. Status post appendicectomy.; 3. Cholelithiasis.; 4. Massive prostatomegaly.; 5. Small hiatal hernia is seen.; 6. Liver appears lobulated suggesting cirrhosis. Hepatic lesion as discussed above may represent he; mangiomas although consider short term follow up.; ; ; Thank you for your kind referral of this patient. We appreciate the opportunity to participate in [facility]; s patient's care.; ; ; Outcome: 19:02 CT Study completed. kr3 22:10 Discharge ordered by Provider. br1 22:25 Discharge Assessment: Patient awake, alert and oriented x 3. No cognitive and/or mb9 functional deficits noted. Patient verbalized understanding of disposition instructions. patient administered narcotics - no. The following High Risk Discharge criteria are identified: None. Discharged to home ambulatory. Condition: good Condition: stable Condition: improved. Discharge instructions given to patient, Instructed on discharge instructions, follow up and referral plans. medication usage, Demonstrated understanding of instructions, medications, Pt was receptive of discharge instructions/ teaching. Prescriptions given X 2. Property :Personal belongings accompany Pt. 22:34 Instructed on Pt instructed to not take his metformin for 48 hours. pt instructed to jarod call his PHCP tomorrow am for further guidance in regards to his metformin. 22:36 Patient left the ED. jarod Signatures: Dispatcher [employer] EDMS Filemon Ross,RN RN Savannah Braswell, Ambika Lunsford,RN RN kr3 Juan Cade MD MD br1 Ryne Rich [place] cmb Ximena Samuel, GRANTS ANALYST GRANTS ANALYST estradaf Shi Rankin,RN RN Sally Connolly, Last Repairer Helper Unit Mak PatrickRN RN mb9 Deandra Hogan,RN RN jp6 Chart Complete MTDD
--- NOTE | 2016-09-23 23:36 | EDDOCDS ---
Physician Documentation [facility] Name: Silvino Regan Age: 86 yrs Sex: Male : 1930 Arrival Date: 09/21/2016 Time: 15:23 Bed 17 Private MD: Stefanie Rothman R. Disposition: 09/21/16 22:10 Discharged to Home/Self Care. Impression: Calculus of ureter. - Condition is Stable. - Discharge Instructions: Kidney Stones. - Prescriptions for Flomax 0.4 mg Oral Capsule, Sust. Release 24 hr - take 1 capsule by ORAL route once daily 1/2 hour following the same meal each day; 30 capsule. ZOFRAN ODT 4 mg - dissolve 1 tablet by ORAL route 4 times per day As needed do not chew, do not swallow whole; 10 tablet. - Medication Reconciliation, Local Pharmacy Hours form. - Follow up: Stefanie Rothman; When: 2 - 3 days; Reason: Recheck today's complaints. Follow up: Roni Dow; When: 2 - 3 days; Reason: Recheck today's complaints. - Problem is new. - Symptoms have improved. - Notes: You were seen in the ED for abdominal pain. Bloodwork along with urine tests showed no acute findings but CT scan of the abdomen revealed a kidney stone nearing the bladder on the left side. We have discussed the case with Urology as well.
As you are feeling better you may return home. Encourage plenty of fluids and take the medicine Flomax daily to assist in passing the stone. You may take Zofran as needed for nausea. You may continue your hydrocodone as needed for pain. Call the Urology office in the morning to be seen for ongoingcare. Return to the ED for any worsening or uncontrolled pain, fever, inability to tolerate oral foods or lquids or any other concerns Historical: - Allergies: no known allergies; - Home Meds: 1. atorvastatin 40 mg oral tab 1 tab once daily (Last dose: 09/20/2016) 2. glimepiride 1 mg Oral tab 1 tab once daily (Last dose: 09/20/2016) 3. metformin 500 mg Oral tab 2 tabs nightly (Last dose: 09/20/2016) 4. ramipril 10 mg Oral cap 1 cap once daily (Last dose: 09/20/2016) 5. metronidazole 500 mg Oral tab 1 tab 3 times per day 6. hydrocodone-acetaminophen 5-325 mg Oral tab every 4-6 hours (Last dose: 09/21/2016 15:00) 7. amoxicillin-pot clavulanate 875-125 mg Oral tab every 12 hours - PMHx: Diabetes - NIDDM: controlled; Hypercholesterolemia; Hypertension; CA; - PSHx: Pacemaker Insertion; CABAG x 5; - Social history: Smoking status: Patient states former smoker of tobacco. No barriers to communication noted, The patient speaks fluent Italian, Speaks appropriately for age. - Family history: Not pertinent. - : The pt / caregiver states he / she is not on anticoagulants. Home medication list is obtained from family members, pill bottles. - Exposure Risk Screening:: None identified. Vital Signs: 09/21 15:24 BP 174 / 84; Pulse 74; Resp 16; Temp 97; Pulse Ox 95% ; Weight 92.08 kg / 203 lbs (M); cmb Height 5 ft. 10 in. (177.80 cm); Pain 5/10; 18:28 BP 147 / 81; Pulse 70; Resp 16; jmk 22:25 BP 147 / 82 (auto/); Pulse 69; Resp 17; Temp 97.2(O); mb9 22:27 Pulse Ox 94% ; mb9 15:24 Body Mass Index 29.13 (92.08 kg, 177.80 cm) cmb MDM: 15:55 IV Saline Lock ordered. br1 15:55 NS 0.9% 1000 ml IV at 150 mL/hr continuous ordered. br1 15:55 morphine 4 mg IVP once ordered. br1 15:55 Ondansetron 4 mg IVP once ordered. br1 15:56 CBC with Diff Ordered. EDMS 15:56 BMP Ordered. EDMS 15:56 Liver Profile Ordered. EDMS 15:56 Lipase Ordered. EDMS 16:04 Urinalysis Ordered. EDMS 16:04 Urine Culture Ordered. EDMS 16:09 Financial registration complete. jpb 16:09 Undo -Financial registration. jpb 16:34 Financial registration complete. jpb 16:35 [facility] Payment Agreement was scanned into [email or web address] and attached to record. jpb 16:36 Ondansetron 4 mg IVP once ordered. br1 16:36 CBC with Diff Reviewed. br1 16:36 BMP Reviewed. br1 16:36 Liver Profile Reviewed. br1 16:36 Lipase Reviewed. br1 16:38 CT ABD & PELVIS: IV and Oral Contrast Ordered. EDMS 16:49 Diatrizoate Meglumine & Sodium Liquid 10 ml PO once; mix in 290cc of water give at 5PM kr3 ordered. 16:49 Diatrizoate Meglumine & Sodium Liquid 10 ml PO once; mix in 290cc of water give at kr3 5:30PM ordered. 20:58 Urinalysis Reviewed. br1 21:04 Fluid Challenge ordered. br1 22:04 Tamsulosin Extended Release 24 hour Capsule 0.4 mg PO once ordered. br1 09/23 08:32 T-Sheet-- Draft Copy was scanned into [email or web address] and attached to record. gb 21:11 ED course: stefanie rothman faxed formal report of ct abd/p for fu mlg. ml Administered Medications: 09/21 16:05 Drug: Ondansetron 4 mg Route: IVP; Site: right antecubital; [facility] 16:28 Follow up: Response: Nausea is resolved kr3 16:06 Drug: NS 0.9% 1000 ml Route: IV; Rate: 150 mL/hr; Site: right antecubital; k 16:06 Drug: morphine 4 mg Route: IVP; Site: right antecubital; [facility] 16:28 Follow up: Response: No significant change. kr3 16:38 Drug: Ondansetron 4 mg [ondansetron HCl 2 mg/mL intravenous solution (2 mL)] Route: kr3 IVP; Site: right antecubital; 16:56 Follow up: Response: Nausea is decreased kr3 16:55 Drug: Diatrizoate Meglumine & Sodium 10 ml [diatrizoate meglumine and diat.sodium 66 kr3 %-10 % oral solution (10 mL)] Route: PO; 17:30 Drug: Diatrizoate Meglumine & Sodium 10 ml [diatrizoate meglumine and diat.sodium 66 kr3 %-10 % oral solution (10 mL)] Route: PO; 22:32 Drug: Tamsulosin 0.4 mg [tamsulosin 0.4 mg capsule (1 caps)] Route: PO; mb9 Signatures: Dispatcher [employer] [facility] Telles MD MD ml Filemon Ross,RN RN ismak Savannah Zabala, Rogers Mccloud gb Ambika Eubanks,RN RN kr3 Juan Cade MD MD br1 Ryne Rich EmilyRN RN ninad Mak ReynagaRN RN mb9 The chart was reviewed and I authenticate all verbal orders and agree with the evaluation and treatment provided.Attachments: 16:35 [facility] Payment Agreement jpb 09/23 08:32 T-Sheet-- Draft Copy gb Chart Complete MTDD
--- NOTE | 2016-09-23 23:36 | EDDOCDS ---
Physician Documentation [facility] Name: Silvino Regan Age: 86 yrs Sex: Male : 1930 Arrival Date: 09/21/2016 Time: 15:23 Bed 17 Private MD: Stefanie Rothman R. Disposition: 09/21/16 22:10 Discharged to Home/Self Care. Impression: Calculus of ureter. - Condition is Stable. - Discharge Instructions: Kidney Stones. - Prescriptions for Flomax 0.4 mg Oral Capsule, Sust. Release 24 hr - take 1 capsule by ORAL route once daily 1/2 hour following the same meal each day; 30 capsule. ZOFRAN ODT 4 mg - dissolve 1 tablet by ORAL route 4 times per day As needed do not chew, do not swallow whole; 10 tablet. - Medication Reconciliation, Local Pharmacy Hours form. - Follow up: Stefanie Rothman; When: 2 - 3 days; Reason: Recheck today's complaints. Follow up: Roni Dow; When: 2 - 3 days; Reason: Recheck today's complaints. - Problem is new. - Symptoms have improved. - Notes: You were seen in the ED for abdominal pain. Bloodwork along with urine tests showed no acute findings but CT scan of the abdomen revealed a kidney stone nearing the bladder on the left side. We have discussed the case with Urology as well.
As you are feeling better you may return home. Encourage plenty of fluids and take the medicine Flomax daily to assist in passing the stone. You may take Zofran as needed for nausea. You may continue your hydrocodone as needed for pain. Call the Urology office in the morning to be seen for ongoingcare. Return to the ED for any worsening or uncontrolled pain, fever, inability to tolerate oral foods or lquids or any other concerns Historical: - Allergies: no known allergies; - Home Meds: 1. atorvastatin 40 mg oral tab 1 tab once daily (Last dose: 09/20/2016) 2. glimepiride 1 mg Oral tab 1 tab once daily (Last dose: 09/20/2016) 3. metformin 500 mg Oral tab 2 tabs nightly (Last dose: 09/20/2016) 4. ramipril 10 mg Oral cap 1 cap once daily (Last dose: 09/20/2016) 5. metronidazole 500 mg Oral tab 1 tab 3 times per day 6. hydrocodone-acetaminophen 5-325 mg Oral tab every 4-6 hours (Last dose: 09/21/2016 15:00) 7. amoxicillin-pot clavulanate 875-125 mg Oral tab every 12 hours - PMHx: Diabetes - NIDDM: controlled; Hypercholesterolemia; Hypertension; [place]; - PSHx: Pacemaker Insertion; CABAG x 5; - Social history: Smoking status: Patient states former smoker of tobacco. No barriers to communication noted, The patient speaks fluent Italian, Speaks appropriately for age. - Family history: Not pertinent. - : The pt / caregiver states he / she is not on anticoagulants. Home medication list is obtained from family members, pill bottles. - Exposure Risk Screening:: None identified. Vital Signs: 09/21 15:24 BP 174 / 84; Pulse 74; Resp 16; Temp 97; Pulse Ox 95% ; Weight 92.08 kg / 203 lbs (M); cmb Height 5 ft. 10 in. (177.80 cm); Pain 5/10; 18:28 BP 147 / 81; Pulse 70; Resp 16; jmk 22:25 BP 147 / 82 (auto/); Pulse 69; Resp 17; Temp 97.2(O); mb9 22:27 Pulse Ox 94% ; mb9 15:24 Body Mass Index 29.13 (92.08 kg, 177.80 cm) cmb MDM: 15:55 IV Saline Lock ordered. br1 15:55 NS 0.9% 1000 ml IV at 150 mL/hr continuous ordered. br1 15:55 morphine 4 mg IVP once ordered. br1 15:55 Ondansetron 4 mg IVP once ordered. br1 15:56 CBC with Diff Ordered. EDMS 15:56 BMP Ordered. EDMS 15:56 Liver Profile Ordered. EDMS 15:56 Lipase Ordered. EDMS 16:04 Urinalysis Ordered. EDMS 16:04 Urine Culture Ordered. EDMS 16:09 Financial registration complete. jpb 16:09 Undo -Financial registration. jpb 16:34 Financial registration complete. jpb 16:35 [facility] Payment Agreement was scanned into [employer] and attached to record. jpb 16:36 Ondansetron 4 mg IVP once ordered. br1 16:36 CBC with Diff Reviewed. br1 16:36 BMP Reviewed. br1 16:36 Liver Profile Reviewed. br1 16:36 Lipase Reviewed. br1 16:38 CT ABD & PELVIS: IV and Oral Contrast Ordered. EDMS 16:49 Diatrizoate Meglumine & Sodium Liquid 10 ml PO once; mix in 290cc of water give at 5PM kr3 ordered. 16:49 Diatrizoate Meglumine & Sodium Liquid 10 ml PO once; mix in 290cc of water give at kr3 5:30PM ordered. 20:58 Urinalysis Reviewed. br1 21:04 Fluid Challenge ordered. br1 22:04 Tamsulosin Extended Release 24 hour Capsule 0.4 mg PO once ordered. br1 09/23 08:32 T-Sheet-- Draft Copy was scanned into [employer] and attached to record. gb 21:11 ED course: stefanie rothman faxed formal report of ct abd/p for fu mlg. ml Administered Medications: 09/21 16:05 Drug: Ondansetron 4 mg Route: IVP; Site: right antecubital; [facility] 16:28 Follow up: Response: Nausea is resolved kr3 16:06 Drug: NS 0.9% 1000 ml Route: IV; Rate: 150 mL/hr; Site: right antecubital; k 16:06 Drug: morphine 4 mg Route: IVP; Site: right antecubital; [facility] 16:28 Follow up: Response: No significant change. kr3 16:38 Drug: Ondansetron 4 mg [ondansetron HCl 2 mg/mL intravenous solution (2 mL)] Route: kr3 IVP; Site: right antecubital; 16:56 Follow up: Response: Nausea is decreased kr3 16:55 Drug: Diatrizoate Meglumine & Sodium 10 ml [diatrizoate meglumine and diat.sodium 66 kr3 %-10 % oral solution (10 mL)] Route: PO; 17:30 Drug: Diatrizoate Meglumine & Sodium 10 ml [diatrizoate meglumine and diat.sodium 66 kr3 %-10 % oral solution (10 mL)] Route: PO; 22:32 Drug: Tamsulosin 0.4 mg [tamsulosin 0.4 mg capsule (1 caps)] Route: PO; mb9 Signatures: Dispatcher [employer] [facility] MD MD ml Filemon Ross,RN RN ismak Savannah Zabala, Rogers Mccloud gb Ambika Eubanks,RN RN kr3 Juan Cade MD MD br1 Ryne Rich EmilyRN RN ninad Mak ReynagaRN RN mb9 The chart was reviewed and I authenticate all verbal orders and agree with the evaluation and treatment provided.Attachments: 16:35 [facility] Payment Agreement jpb 09/23 08:32 T-Sheet-- Draft Copy gb Chart Complete MTDD
== END 2016-09-21 22:36 | disposition home or self-care (01) ==
LOC: M ED 15:23
DX: N20.1 Calculus of ureter (principal); E11.9 Type 2 diabetes mellitus without complications; I10 Essential (primary) hypertension; I25.2 Old myocardial infarction; E78.5 Hyperlipidemia, unspecified; Z79.899 Other long term (current) drug therapy; Z95.1 Presence of aortocoronary bypass graft; Z95.0 Presence of cardiac pacemaker; Z87.891 Personal history of nicotine dependence
CPT/HCPCS: 36415; 74177; 80048; 80076; 81001; 83690; 85025; 87086; 96374; 96375; 96376; 99284; J2405; Q9963; Q9967

== ENCOUNTER → 2016-09-29 | Outpatient (REF) | payer MEDICARE, OTHER | LOC: M SMT 16:46 | PROVIDERS: ATTEND Nurse Practitioner Women's Health | DX: N13.2 Hydronephrosis with renal and ureteral calculous obstruction (principal) | CPT/HCPCS: 81001; 87086; G0463 ==

== ENCOUNTER → 2016-10-06 | Outpatient (REF) | payer MEDICARE, OTHER | LOC: M SMT 13:01 | PROVIDERS: ATTEND Nurse Practitioner Women's Health | DX: N13.2 Hydronephrosis with renal and ureteral calculous obstruction (principal) | CPT/HCPCS: 81001; G0463 ==

== ENCOUNTER → 2016-10-20 | Outpatient (CLI) | payer MEDICARE, OTHER ==
--- NOTE | 2016-10-20 11:38 | REP ---
Supine abdomen single supine abdomen two views: There are no comparison plain film studies of the abdomen. Comparison is a CT of the abdomen and pelvis on 09/21/2016. There is a focal density in the pelvis on the right inferior to the left sacroiliac joint similar in location to the calculus identified in the list distal left ureter on the comparison CT. Additionally, there are multiple other pelvic calcifications compatible with phleboliths. Bowel gas pattern is normal. Skeletal structures and soft tissues are otherwise unremarkable. Signed by Mark Castorena MD 10/20/2016 11:29 A
--- NOTE | 2016-10-20 11:41 | REP ---
Renal ultrasound: On a CT of the abdomen pelvis day 09/21/2016. There was a calculus in the distal left ureter and left hydronephrosis. On the study today there is no hydronephrosis on the left or the right. The kidneys are normal size. Right kidney measures 11.3 x 528 x 5.4 cm. Left kidney measures 12.4 5.3 x 5.6 cm. No renal calculi are identified. No renal masses are identified. There is a right renal lower pole cyst measuring 12 mm in diameter. There are multiple left renal cysts, largest measuring 3.3 cm. The prostate is enlarged measuring 7.3 x 7.5 x 6.7 cm. Impression: No hydronephrosis. Bilateral renal cortical cysts. Enlarged prostate. Signed by Mark Castorena MD 10/20/2016 11:32 A
== END ==
LOC: M RAD 09:53
PROVIDERS: ATTEND Nurse Practitioner Women's Health
DX: N13.2 Hydronephrosis with renal and ureteral calculous obstruction (principal)

== ENCOUNTER → 2016-10-27 | Outpatient (REF) | payer MEDICARE, OTHER ==
[2016-10-27 20:00] LABS: CALCIUM OXALATE CRYSTALS SMALL
== END ==
LOC: M SMT 16:49
PROVIDERS: ATTEND Nurse Practitioner Women's Health
DX: N13.2 Hydronephrosis with renal and ureteral calculous obstruction (principal)

== ENCOUNTER 2017-01-17 15:42 | Observation (INO) | payer MEDICARE, OTHER ==
[~2017-01-17] VITALS: Ht 177.8 cm; Wt 92.9 kg
[2017-01-17] MEDS ORDERED: ASPI32ECTA PO (15:55)
[2017-01-17 16:47] LABS: BASO # 0.1 K/mm3 (0.0-0.2); BASO % 0.6 % (0.0-1.0); EOS # 0.2 K/mm3 (0.0-0.50); EOS % 1.5 % (0.0-3.0); LARGE UNSTAINED CELL # 0.2 K/mm3 (0.0-0.4); LARGE UNSTAINED CELL % 1.4 % (0.0-4.0); LYMPH # 0.9 K/mm3 (1.5-4.5); LYMPH % 7.8 % (24.0-44.0); MEAN CORPUSCULAR HEMOGLOBIN 32.1 pg (27.0-33.0); MEAN CORPUSCULAR HGB CONC 33.4 g/dl (32.0-36.5); MONO # 0.7 K/mm3 (0.0-0.8); MONO % 5.5 % (0.0-5.0); NEUTROPHILS % 83.2 % (36.0-66.0); PLATELET COUNT, AUTOMATED 176 k/mm3 (150-450); RED CELL DISTRIBUTION WIDTH 13.9 % (11.5-14.5)
[2017-01-17 16:54] LABS: INR 1.04
[2017-01-17] MEDS ORDERED: MORPHINE 4 MG/ML 1ML SYRINGE IV ONE ×3 (17:00→21:15)
[2017-01-17] MEDS ORDERED: ONDANSETRON 4MG/2ML VIAL (J2405) IV ONE (17:00)
--- NOTE | 2017-01-17 17:05 | REP ---
CT HEAD WITHOUT CONTRAST: HISTORY: Headache. Areas of decreased attentuation are present in the periventricular and subcortical white matter. This represents small vessel ischemic disease. There is no intraparenchymal hemorrhage, mass, or midline shift. The ventricular system and cortical sulci are dilated consistent with mild volume loss. There is no extracerebral collection. Mucosal thickening is present in the left ethmoid sinus. IMPRESSION: 1. Small vessel ischemic disease. 2. Mild volume loss. Signed by Temo Loredo MD 01/17/2017 05:10 P
[2017-01-17 17:13] LABS: ALBUMIN 3.9 GM/DL (3.2-5.2); ALBUMIN/GLOBULIN RATIO 1.15 (1.00-1.93); ALKALINE PHOSPHATASE 127 U/L (45-117); ALT/SGPT 41 U/L (12-78); ANION GAP 8 MEQ/L (8-16); AST/SGOT 147 U/L (15-37); BILIRUBIN,DIRECT 0.3 MG/DL (0.0-0.2); BLOOD UREA NITROGEN 15 MG/DL (7-18); CALCIUM LEVEL 8.4 MG/DL (8.8-10.2); CARBON DIOXIDE LEVEL 27 MEQ/L (21-32); CHLORIDE LEVEL 105 MEQ/L (98-107); CREATININE FOR GFR 1.01 MG/DL (0.70-1.30); GLOMERULAR FILTRATION RATE > 60.0 (>35); GLUCOSE, FASTING 121 MG/DL (83-110); SODIUM LEVEL 140 MEQ/L (136-145); TOTAL PROTEIN 7.3 GM/DL (6.4-8.2)
[2017-01-17] MEDS ORDERED: GASTROGRAFIN SOLUTION 30ML PO ONE (17:50)
--- NOTE | 2017-01-17 17:57 | REP ---
CHEST, ONE VIEW: REASON: Hypertension. COMPARISON: 08/08/2013 which is the latest prior. The technique utilized in obtaining the radiograph has magnified the cardiac silhouette and accentuated the interstitial markings. Note is again made of previous median sternotomy status quo. Dual chamber bipolar pacemaker device again noted. The leads are unchanged. There is mild cardiomegaly. The lung abbott are unchanged from the prior exam. No acute patchy parenchymal opacities or pleural effusions present. There is no change in the osseous structures. IMPRESSION: Stable appearing chronic changes without evidence of acute cardiopulmonary disease. Signed by Diogo Mane DO 01/18/2017 11:09 A
[2017-01-17] MEDS ORDERED: GASTROGRAFIN SOLUTION 30ML (Q9963) PO ONE (18:20)
[2017-01-17] MEDS ORDERED: ISOVUE-370 76% 100ML VIAL (Q9967) As Ordered ONE (19:06)
--- NOTE | 2017-01-17 20:00 | REPUSA ---
CT of the abdomen and pelvis with contrast Clinical statement: Pain. Technique: Multiple axial CT images were obtained from the base of the lungs through the floor of the pelvis utilizing 5 mm axial slices after administration of nonionic intravenous contrast. Coronal an d sagittal reconstructions were also obtained. Comparison: September 21, 2016. Findings: Chest: The visualized lung bases are clear. Abdomen: There are innumerable new low attenuation hepatic masses with peripheral enhancement through out the liver. The majority of these lesions are new since the prior study. A lesion with peripheral enhancement with was seen on the prior study measures 2.4 x 2.1 cm, versus 1.8 x 1.2 cm on the prior exam.. A new dominant mass demonstrated in segment VIII measures 3.8 x 4.7 cm. The hepatic and zena l veins are patent. There is no evidence of biliary ductal dilatation. The spleen, pancreas, and adre nal glands are unremarkable. Simple bilateral renal cysts are stable. A 6 mm gallstone is seen within the gallbladder. The aorta demonstrates moderate atherosclerosis, but is otherwise within normal li mits. There is no evidence of abdominal lymphadenopathy or ascites. Pelvis: The bowel is unremarkable, with no obstructive or inflammatory changes. Sigmoid diverticulosi s is noted, without evidence of diverticulitis. The urinary bladder is within normal limits. The pros acosta is stable and enlarged, measuring 7.6 x 6.8 cm. intact. There is no evidence of pelvic lymphaden opathy or ascites. Bones: There are no suspicious osseous abnormalities seen moderate degenerative disc disease is noted at L5/S1. Impression: 1. Numerous new peripherally enhancing low attenuation masses throughout the liver. This is considere d metastatic disease until proven otherwise. 2. No evidence of hydronephrosis or nephrolithiasis. Bilateral simple renal cysts. 3. Cholelithiasis without evidence of acute cholecystitis. 4. Sigmoid diverticulosis without evidence of diverticulitis. No obstructive or inflammatory bowel ch anges. 5. Mild degenerative changes at L5/S1. 6. Stable enlarged prostate.
[2017-01-17] MEDS ORDERED: HumaLOG INSULIN (NovoLOG) PER UNIT SC SCH (21:00)
[2017-01-17] MEDS ORDERED: CLAR1TAB2 PO (21:25)
[2017-01-17] MEDS ORDERED: GLUCOSE 4 GM CHEW TABLET PO PRN (22:00)
[2017-01-17] MEDS ORDERED: DEXTROSE 50% 50 ML SYRINGE IV PRN (22:00)
[2017-01-17] MEDS ORDERED: ONDANSETRON 4 MG TAB (S0181) PO PRN (22:00)
[2017-01-17] MEDS ORDERED: GLUCAGON FOR INJ 1 MG VIAL (J1610) SC PRN (22:00)
[2017-01-17] MEDS ORDERED: LORATADINE 10 MG TAB PO PRN (23:00)
[2017-01-17] MEDS: MORPHINE 2 MG/ML 1ML SYRINGE IV PRN (23:40)
[2017-01-18 00:45] VITALS: BP 141/73
--- NOTE | 2017-01-18 01:04 | HPE ---
DATE OF ADMISSION: 01/17/2017 PRIMARY CARE PHYSICIAN: Mack Rothman SCOOPER: Dr. Naif Mckeon GENERAL SURGEON: Dr. Neil CODE STATUS: DNR/DNI CHIEF COMPLAINT: Abdominal pain, nausea, and vomiting. HISTORY OF PRESENT ILLNESS: Mr. Regan is an 86-year-old male with multiple past medical history who presented to emergency room (ER) due to experiencing several episodes of vomiting as well as severe abdominal pain, 8/10 , stationary, in the right upper quadrant and mid sternum. Patient expressed that he started noticing this pain since August after he had appendicitis. Pain is not constant however, he noticed that the pain has been increased with eating. Patient is accompanied by his daughters, who expressed that patient has been having abdominal pain for a long time, and one of his daughters mentioned that for the past two weeks the patient pain has been increased; however, patient does not want to talk about his pain until it gets worse. This morning, he had coffee and small cake for breakfast and went to gym. When he was driving back home, he started having several episodes of clear vomiting with no hemoptysis as well as abdominal pain. The vomiting and pain continued and he believes that he had about 15 episodes of vomiting before coming to ER. He also noticed increased in pain in the right upper quadrant abdomen and the mid abdomen area. According to the daughters, patient has decreased food intake for the past several weeks due to abdominal pain as well as nausea. Patient expressed that he had episodes of vomiting in the past few weeks as well. Patient denies having fever, chills, or night sweats. Patient also denies hematochezia, diarrhea, or constipation. Patient denies any new diet. Patient's daughter expressed that at first they thought that this was related to nephrolithiasis, however patient is following with urology. Patient also denies chest pain as well as palpitations. Patient also denied aspiration. according to patient's daughter, he has lost about 5-10 pounds since appendectomy in August. ALLERGIES: patient has no drug allergies. PAST MEDICAL HISTORY: 1. Hypertension. 2. Hyperlipidemia. 3. Coronary artery disease with myocardial infarction and coronary artery bypass graft (CABG) 8 years ago. 4. Diabetes. 5. Nephrolithiasis in 2016. PAST SURGICAL HISTORY: 1. Pacemaker insertion 4 years ago. 2. CABG about 8 years ago. 3. Appendectomy in August 2016. SOCIAL HISTORY: Patient lives alone. Patient expressed that has not smoked for past 50 years; however, patient expressed that he had a history of three packs per day smoking for 10 years before he quit 50 years ago. Patient expressed that he used to drink alcohol occasionally; however, he does not drink anymore. Patient denies illicit drug use. 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 Patient has traveled to [place] as part of the and stayed in [place] for 2 years. FAMILY HISTORY: Patient had six brothers and one sister. Patient has lost his brothers due to diabetes, stomach cancer, stroke, and emphysema. Patient's father at a young age due to rupture of aorta. Patient's mother at age 69 due to diabetes and cancer. Patient has three children, and one of the children has diabetes. HOME MEDICATIONS: - aspirin 325 mg by mouth daily - atorvastatin 40 mg by mouth at bedtime - glimepiride 1 mg by mouth daily - clonidine 10 mg by mouth daily as needed allergy - metformin 2 mg by mouth every evening with dinner - ramipril 10 mg by mouth daily REVIEW OF SYSTEMS: GENERAL: Patient denies fevers, chills, night sweats; however, patient's daughter expressed that patient has lost about 5-10 pounds since appendectomy in August. HEENT: Patient denies acute vision or hearing changes. Patient expressed that he has been experiencing some headache; however, this is a chronic issue. Patient denies problem with chewing food. Patient also denies sinusitis; however, patient has some allergies. NECK: Patient denies lumps, bumps, or decreased range of motion of his neck. HEART: Patient denies palpitations, racing or skipping heartbeat, chest pain. LUNGS: Patient denies shortness of breath, wheezing or coughing. ABDOMEN: Patient has abdominal pain, 8/10, stationary in the right upper quadrant and the mid abdomen. Patient also experienced several episodes of vomiting; however, no hemoptysis. Also, patient denies diarrhea, constipation, hematochezia. NEUROLOGIC: Patient expressed that he has some numbness and tingling on his fingers; however, this is a chronic issue. Patient does not have history of transient ischemic attack (TIA), cerebrovascular accident (CVA), or seizure-type activity. PHYSICAL EXAMINATION: VITAL SIGNS: Temperature 98.9, pulse 65, respiratory rate 20, blood pressure 141/64, pulse oximetry 94 on room air. GENERAL APPEARANCE: Patient was lying in bed in no acute distress. Patient was awake, alert, and oriented to time, place, and person. HEENT: Normocephalic, atraumatic. Pupils are equal. Oral mucosa is moist. NECK: No lymphadenopathy. No goiter. HEART: Regular rate and rhythm. Normal S1, S2. No murmur or gallop. LUNGS: Clear breath sounds bilaterally. Good air movement. ABDOMEN: Soft. Tender to palpation mostly on the right upper quadrant and the mid abdomen. Positive Carreon sign. Overweight. Positive bowel sounds in all quadrants. However no swelling or erythema was noticed. No hepatosplenomegaly. EXTREMITIES: No lower extremity edema. +2 pulses in both lower extremities. MUSCULOSKELETAL: Normal range of motion, both upper and lower extremities. NEUROLOGIC: Cranial nerves II-XII were intact. No focal deficiencies. LABORATORY DATA: White blood cells 12, red blood cell 4.16, hemoglobin 13.3, hematocrit 39.9, MCV 96, MCH 32.1, MCHC 33.4, RDW 13.9, platelet count 176, neutrophil percentage 83.2, lymphocyte percentage 7.8, monocyte percentage 5.5, eosinophil percentage 1.5, basophil percentage 0.6, leukocyte percentage 1.4, neutrophil number 10. PT 13.7, INR 1.04. APTT 30.6. Sodium 140, potassium 4, chloride 105, carbon dioxide 27, anion gap 8, BUN 15, creatinine 1.01, glomerular filtration rate more than 60, fasting glucose 121, calcium 8.4. Total bilirubin 2, direct bilirubin 0.3, AST 147, ALT 41, alkaline phosphatase 127, total creatine kinase 182, CK-MB 1.5, CK-MB relative index 0.82. Troponin I 0.03. Total protein 7.3, albumin 3.9. Lipase 141. IMAGING TECHNIQUES: CT of the head without contrast shows small-vessel ischemic disease as well as mild volume loss. Chest x-ray, which shows stable-appearing chronic changes without evidence of acute cardiopulmonary disease. CT abdomen and pelvis with intravenous (IV) and oral contrast, which showed numerous new peripherally enhancing low attenuations, masses throughout the liver. No evidence of hydronephrosis or nephrolithiasis. Bilateral simple renal cysts. Cholelithiasis without evidence of acute cholecystitis. Sigmoid diverticulosis without evidence of diverticulitis. No obstructive or inflammatory bowel changes. Mild degenerative changes at L5-S1, stable. Enlarged prostate. ASSESSMENT AND PLAN: 1. Abdominal pain. This is possibly related to cholelithiasis; however, CT did not show any evidence of acute cholecystitis. It also indicated the abnormal presentations with the masses throughout the liver, which raise the possibility of metastatic disease. At this point, we will make the patient nothing by mouth, and we will start the patient on IV fluid. No antibiotic was administered at this time; however, I have ordered blood cultures, and the result is pending. Also we have ordered cardiac markers due to the extensive history of cardiac disease. Also, for managing the pain,I have started patient on morphine 2 mg every 4 hours by mouth as needed IV. For controlling his nausea and vomiting, patient is on Zofran; however, at this time he is asymptomatic. 2. Transaminitis. This could be secondary to a statin also CT of abdomen and pelvis indicated numerous new peripherally enhanced low-attentuation masses throughout the liver, which concerning for metastatic disease. Patient had gallbladder ultrasound, which was done on 01/24/2013, which indicated three mass lesions in the liver, one of which was consistent with the hemangioma, and the other two were nonspecific. due to pacemaker, he is not candidate for MRI screening. Patient may require followup, including biopsy. 3. Hypertension. Patient's blood pressure is stable at this time. We will continue patient on the current dosage of ramipril 10 mg by mouth daily. 4. Dyslipidemia. Patient is on Lipitor 40 mg by mouth at bedtime however we will hold this medication due to possibility of contributing to transaminitis. 5. Coronary artery disease. Patient is on a starting however we will hold this medication due to transaminitis. Also, patient is on aspirin 325 mg by mouth daily. EKG which was performed at this visit did not show any new acute pathology. due to history of coronary artery disease and risk factors including diabetes, I have ordered cardiac markers. The first set of cardiac markers was normal. We will continue for two more sets. 6. Rke-gtiwezm-melgaqxym diabetes. At home patient is on metformin as well as glimepiride; however, I have stopped these medications, and we have started patient on sliding scale and checking patient's glucose every 6 hours since patient is nothing by mouth. 7. History of Nephrolithiasis. Patient is following with urology. CT did not indicated nephrolithiasis at this time. 8. Enlarged prostate. CT which was done at this admission indicated enlargement of the prostate. We have ordered prostate-specific antigen (PSA), and the result is pending at this time. 9. Deep vein thrombosis (DVT) prophylaxis. Patient is on Lovenox 40 mg daily subcutaneous (SC). 10. Allergies. Patient is on Claritin 10 mg by mouth daily as needed for allergies. My preceptor for this patient encounter was Dr. Izzy Yanes. The preceptor was physically present in the building during the encounter and was fully available as needed. All aspects of the patient interview, examination, medical decision making process, and medical care plan development were reviewed and approved by the preceptor. The preceptor is aware and concurs with the plan as stated in the body of this note and will attest to such by his/her co-signature. ABI
[2017-01-18] MEDS: ATORVASTATIN 20 MG TAB PO SCH ×2 (01:06→21:03)
[2017-01-18] MEDS: NS 1,000 ML IV SCH ×2 (01:06→13:24)
[2017-01-18 06:00] VITALS: BP 144/71
[2017-01-18 06:11] LABS: MEAN CORPUSCULAR HEMOGLOBIN 32.2 pg (27.0-33.0); MEAN CORPUSCULAR HGB CONC 33.4 g/dl (32.0-36.5); MEAN CORPUSCULAR VOLUME 96.5 fl (80.0-96.0); WHITE BLOOD COUNT 12.9 K/mm3 (4.0-10.0)
[2017-01-18 06:35] LABS: ALBUMIN 3.2 GM/DL (3.2-5.2); ALBUMIN/GLOBULIN RATIO 1.03 (1.00-1.93); ALKALINE PHOSPHATASE 112 U/L (45-117); ALT/SGPT 43 U/L (12-78); ANION GAP 6 MEQ/L (8-16); AST/SGOT 113 U/L (15-37); BLOOD UREA NITROGEN 15 MG/DL (7-18); CALCIUM LEVEL 7.8 MG/DL (8.8-10.2); CARBON DIOXIDE LEVEL 29 MEQ/L (21-32); CHLORIDE LEVEL 103 MEQ/L (98-107); CREATININE FOR GFR 1.04 MG/DL (0.70-1.30); GLOMERULAR FILTRATION RATE > 60.0 (>35); GLUCOSE, FASTING 184 MG/DL (83-110); MAGNESIUM LEVEL 1.9 MG/DL (1.8-2.4); POTASSIUM SERUM 4.5 MEQ/L (3.5-5.1); SODIUM LEVEL 138 MEQ/L (136-145); TOTAL PROTEIN 6.3 GM/DL (6.4-8.2)
[2017-01-18] MEDS ORDERED: HumaLOG INSULIN (NovoLOG) PER UNIT SC SCH (07:30)
--- NOTE | 2017-01-18 08:16 | ECGEPIP ---
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
[2017-01-18] MEDS: ASPIRIN ENTERIC 325 MG TAB PO SCH (09:39)
[2017-01-18] MEDS: ENOXAPARIN 40 MG/0.4 ML SYRINGE (J1650) SC SCH (09:39)
[2017-01-18] MEDS: RAMIPRIL 5 MG CAP PO SCH (09:42)
[2017-01-18 14:00] VITALS: BP 135/66
[2017-01-18] MEDS ORDERED: traZODone 25MG PER 1/2 TABLET PO ONE (21:15)
[2017-01-18 22:00] VITALS: BP 132/70
[2017-01-19] VITALS (10 sets, daily range): BP systolic 118–152; BP diastolic 60–85
[2017-01-19 07:03] LABS: MEAN CORPUSCULAR HEMOGLOBIN 31.9 pg (27.0-33.0); MEAN CORPUSCULAR HGB CONC 33.8 g/dl (32.0-36.5); MEAN CORPUSCULAR VOLUME 94.6 fl (80.0-96.0); RED CELL DISTRIBUTION WIDTH 14.1 % (11.5-14.5); WHITE BLOOD COUNT 9.5 K/mm3 (4.0-10.0)
[2017-01-19 07:30] LABS: ALBUMIN 2.9 GM/DL (3.2-5.2); ALBUMIN/GLOBULIN RATIO 0.88 (1.00-1.93); ALKALINE PHOSPHATASE 100 U/L (45-117); ALT/SGPT 30 U/L (12-78); ANION GAP 7 MEQ/L (8-16); AST/SGOT 56 U/L (15-37); BILIRUBIN,TOTAL 3.2 MG/DL (0.2-1.0); BLOOD UREA NITROGEN 13 MG/DL (7-18); CALCIUM LEVEL 8.2 MG/DL (8.8-10.2); CARBON DIOXIDE LEVEL 27 MEQ/L (21-32); CHLORIDE LEVEL 105 MEQ/L (98-107); CREATININE FOR GFR 0.94 MG/DL (0.70-1.30); GLOMERULAR FILTRATION RATE > 60.0 (>35); GLUCOSE, FASTING 144 MG/DL (83-110); MAGNESIUM LEVEL 2.1 MG/DL (1.8-2.4); POTASSIUM SERUM 4.1 MEQ/L (3.5-5.1); SODIUM LEVEL 139 MEQ/L (136-145); TOTAL PROTEIN 6.2 GM/DL (6.4-8.2)
[2017-01-19] MEDS: HumaLOG INSULIN (NovoLOG) PER UNIT SC SCH ×3 (08:08→17:30)
[2017-01-19] MEDS: RAMIPRIL 5 MG CAP PO SCH (08:10)
--- NOTE | 2017-01-19 08:38 | DSES ---
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 SECONDARY DIAGNOSES: 1. Benign prostatic hypertrophy (BPH). 2. Cholelithiasis. 3. Hypertension. 4. Hyperlipidemia. 5. Coronary artery disease. 6. Type 2 diabetes. 7. History of pacemaker. HISTORY: Berenice Regan was admitted with intractable nausea and vomiting. Imaging studies showed a large number of lesions in his liver suggestive of metastases and new/increased from comparison from 09/21/2016. He was admitted for further treatment. HOSPITAL COURSE: The patient was admitted to a medical bed. He was rehydrated. Plans were made for a CT guided biopsy of one of the liver lesions. I met with the family on three occasions and discussed the plan with them. We started his diet again yesterday and he tolerated it well. He was able to eat supper without any difficulty and breakfast as well. Plans are to discharge him today after a CT guided biopsy with outpatient followup through the [facility] and then ultimately probably referral to hematology/oncology based on results of the biopsy. He does have BPH. Somebody ordered a PSA on him and it was 8.9. It is not unexpected in someone who is 86. I will defer to his primary care provider what to do about this. He already has a urologist that he sees as an outpatient. I do not think that his prostate has anything to do with his current liver problems and I did not pursue this any further. DISPOSITION: Plan is to discharge him today after his biopsy on the same medications that he was taking prior to admission, which appear to be: - aspirin 325 mg daily - atorvastatin 40 mg daily - glimepiride 1 mg daily - loratadine 10 mg daily - metformin 1000 mg twice a day - Ramipril 10 mg daily Activity as tolerated. Controlled carbohydrate, no added salt diet, low fat and low cholesterol. Followup with Timothy Rothman at [facility] next week, they already have an appointment. Pathology report should be back by then. ADDENDUM: Berenice was discharged yesterday after his procedure but he developed some sharp pain in his right scapula, probably referred from his liver and the irritation from the biopsy so I thought it would be prudent to hold him overnight and keep an eye on his hemoglobin. It is stable at 11. His pain has resolved. He is eating well and wants to go home so he is being discharged per instructions outlined in yesterday's discharge summary. No change in his health during the interval since last dictation. Edited 01/20/2017 [facility] 1032 MTDD
[2017-01-19] MEDS ORDERED: LIDOCAINE 1% MDV 20ML VIAL As Ordered ONE (11:44)
[2017-01-19] MEDS: ASPIRIN ENTERIC 325 MG TAB PO SCH (12:51)
[2017-01-19] MEDS: NS 1,000 ML IV SCH ×3 (13:59→23:39)
[2017-01-19] MEDS: MORPHINE 2 MG/ML 1ML SYRINGE IV PRN (17:14)
[2017-01-19 18:08] LABS: MEAN CORPUSCULAR HEMOGLOBIN 31.6 pg (27.0-33.0); MEAN CORPUSCULAR HGB CONC 32.5 g/dl (32.0-36.5); MEAN CORPUSCULAR VOLUME 97.4 fl (80.0-96.0); WHITE BLOOD COUNT 9.1 K/mm3 (4.0-10.0)
--- NOTE | 2017-01-19 18:24 | REP ---
ULTRASOUND GUIDED LIVER BIOPSY: The procedure was performed under the direct supervision of Dr. Telles. The patient has a history of numerous new peripherally enhancing low attenuation masses throughout the liver seen on a previous CAT scan dated 01/17/2017. The risks and benefits of the procedure were explained to the patient and informed consent was obtained. A mass in the left lobe of the liver was localized using ultrasound guidance. The skin was prepped and draped in a sterile fashion. 1% Lidocaine was used as a local anesthetic. Using ultrasound guidance a 19/20-gauge coaxial needle biopsy system was inserted and advanced into the mass. 5 core biopsy samples were obtained and sent to the lab. The patient tolerated the procedure well and there were no immediate complications. Reviewed by OPAL Salgado 01/20/2017 08:31 AEdited and Signed by Mark Telles MD 01/20/2017 05:08 P
[2017-01-19] MEDS ORDERED: diphenhydrAMINE INJ 50MG/ML VIAL (J1200) IV ONE (20:00)
[2017-01-19] MEDS: ATORVASTATIN 20 MG TAB PO SCH (20:32)
[2017-01-19] MEDS ORDERED: HumaLOG INSULIN (NovoLOG) PER UNIT SC SCH (21:00)
[2017-01-20 02:00] VITALS: BP 140/77
[2017-01-20 05:29] LABS: MEAN CORPUSCULAR HEMOGLOBIN 31.7 pg (27.0-33.0); MEAN CORPUSCULAR HGB CONC 33.5 g/dl (32.0-36.5); MEAN CORPUSCULAR VOLUME 94.9 fl (80.0-96.0); WHITE BLOOD COUNT 7.7 K/mm3 (4.0-10.0)
[2017-01-20 05:52] LABS: ALBUMIN 2.7 GM/DL (3.2-5.2); ALBUMIN/GLOBULIN RATIO 0.84 (1.00-1.93); ALKALINE PHOSPHATASE 90 U/L (45-117); ALT/SGPT 25 U/L (12-78); ANION GAP 8 MEQ/L (8-16); AST/SGOT 37 U/L (15-37); BILIRUBIN,TOTAL 2.9 MG/DL (0.2-1.0); BLOOD UREA NITROGEN 9 MG/DL (7-18); CARBON DIOXIDE LEVEL 27 MEQ/L (21-32); CHLORIDE LEVEL 106 MEQ/L (98-107); CREATININE FOR GFR 0.84 MG/DL (0.70-1.30); GLOMERULAR FILTRATION RATE > 60.0 (>35); GLUCOSE, FASTING 120 MG/DL (83-110); POTASSIUM SERUM 3.7 MEQ/L (3.5-5.1); SODIUM LEVEL 141 MEQ/L (136-145); TOTAL PROTEIN 5.9 GM/DL (6.4-8.2)
[2017-01-20 06:00] VITALS: BP 140/60
[2017-01-20] MEDS: ENOXAPARIN 40 MG/0.4 ML SYRINGE (J1650) SC SCH (08:04)
[2017-01-20] MEDS: HumaLOG INSULIN (NovoLOG) PER UNIT SC SCH (08:04)
[2017-01-20 08:05] VITALS: BP 132/65
[2017-01-20] MEDS: ASPIRIN ENTERIC 325 MG TAB PO SCH (08:05)
[2017-01-20] MEDS: RAMIPRIL 5 MG CAP PO SCH (08:05)
== END 2017-01-20 10:46 | disposition home or self-care (01) ==
LOC: M ED 16:18 → M ED INP 21:55 → M MSPAV 01-18 00:41
PROVIDERS: ADMIT Internal Medicine; ATTEND Hospitalist
DX: C78.7 Secondary malignant neoplasm of liver and intrahepatic bile duct (principal); R10.11 Right upper quadrant pain; R11.2 Nausea with vomiting, unspecified; N40.0 Benign prostatic hyperplasia without lower urinary tract symptoms; I10 Essential (primary) hypertension; E78.5 Hyperlipidemia, unspecified; I25.10 Atherosclerotic heart disease of native coronary artery without angina pectoris; E11.9 Type 2 diabetes mellitus without complications; Z95.0 Presence of cardiac pacemaker; Z79.899 Other long term (current) drug therapy; Z79.82 Long term (current) use of aspirin; I25.2 Old myocardial infarction; Z95.1 Presence of aortocoronary bypass graft; Z87.891 Personal history of nicotine dependence
CPT/HCPCS: 10022; 36415; 70450; 71010; 74177; 80048; 80053; 80076; 81001; 82550; 82553; 83690; 83735; 84484; 85025; 85027; 85610; 85730; 87040; 87086; 88307; 93005; 93041; 96372; 96374; 96375; 96376; 99285; G0103; G0378; J1200; J1650; J2405; Q9963; Q9967

== ENCOUNTER → 2017-02-02 | Outpatient (REF) | payer MEDICARE, OTHER ==
[~2017-02-02] MED LIST changes: +ASPI32ECTA PO; +CLAR1TAB2 PO
== END ==
LOC: M LAB REF 16:40
PROVIDERS: ATTEND Internal Medicine Medical Oncology
DX: C18.9 Malignant neoplasm of colon, unspecified (principal)

== ENCOUNTER → 2017-02-16 | Outpatient (CLI) | payer MEDICARE, OTHER ==
[~2017-02-16] VITALS: Ht 175.3 cm; Wt 93.0 kg
[~2017-02-16] MED LIST changes: +NS 1,000 ML IV ONE; +PROPOFOL 200 MG/20 ML VIAL As Ordered ONE
--- NOTE | 2017-02-16 12:47 | ROOR ---
Patient Name: Silvino Regan Procedure Date: 02/16/2017 12:04 PM Date of : 1930 Age: 86 Room: OP02 Gender: Male Note Status: Finalized Procedure: Colonoscopy Indications: High risk colon cancer surveillance: Personal history of colon cancer, (supected). Pt with known metastatic liver lesion, biopsy consistent with of colorectal primary.) Providers: Carl ALLEN MD Referring MD: CARY Orozco, Leyla CARDONA MD Requesting Provider: Medicines: Monitored Anesthesia Care Complications: No immediate complications. Procedure: Pre-Anesthesia Assessment: - The heart rate, respiratory rate, oxygen saturations, blood pressure, adequacy of pulmonary ventilation, and response to care were monitored throughout the procedure. The Colonoscope was introduced through the anus and advanced to the terminal ileum, with identification of the appendiceal orifice and IC valve. The colonoscopy was performed without difficulty. The patient tolerated the procedure well. The quality of the bowel preparation was good. Findings: The perianal and digital rectal examinations were normal. (Exam: Complete, Prep: Good or Excellent.) A fungating partially obstructing large mass was found in the distal descending colon. The mass was partially circumferential (involving two-thirds of the lumen circumference). The mass measured four cm in length. This was biopsied with a cold forceps for histology. Area was tattooed with an injection of 5 mL of Richelle ink. A 10 mm polyp was found in the cecum. The polyp was flat. The polyp was removed with a piecemeal technique using a cold snare. Resection and retrieval were complete. A 10 mm polyp was found in the rectum. The polyp was semi-sessile. The polyp was removed with a cold snare. Resection and retrieval were complete. To prevent bleeding after the polypectomy, three hemostatic clips were successfully placed (MR conditional). Multiple medium-mouthed diverticula were found in the sigmoid colon and descending colon. Small Internal Hemorrhoids. Impression: - Malignant partially obstructing tumor in the distal descending colon- at 50 cm from anal verge). Biopsied. Tattooed. - One 10 mm polyp in the cecum, removed piecemeal using a cold snare. Resected and retrieved. - One 10 mm polyp in the rectum, removed with a cold snare. Resected and retrieved. Clips (MR conditional) were placed. - Diverticulosis in the sigmoid colon and in the descending colon. - Small Internal Hemorrhoids. Recommendation: - Await pathology results. - Refer to a surgeon at the next available appointment. Carl Allen MD Carl ALLEN MD 02/16/2017 12:46:27 PM This report has been signed electronically. Number of Addenda: 0 Note Initiated On: 02/16/2017 12:04 PM Estimated Blood Loss: Estimated blood loss: none.
[2017-02-16 13:07] VITALS: BP 121/75
== END | disposition home or self-care (01) ==
LOC: M OPP 10:30
PROVIDERS: ATTEND Internal Medicine Gastroenterology
DX: C18.9 Malignant neoplasm of colon, unspecified (principal); C78.7 Secondary malignant neoplasm of liver and intrahepatic bile duct; K57.30 Diverticulosis of large intestine without perforation or abscess without bleeding; D12.8 Benign neoplasm of rectum; K64.8 Other hemorrhoids; Z80.0 Family history of malignant neoplasm of digestive organs; K74.60 Unspecified cirrhosis of liver; H40.9 Unspecified glaucoma; E11.9 Type 2 diabetes mellitus without complications; I48.91 Unspecified atrial fibrillation; I34.0 Nonrheumatic mitral (valve) insufficiency; M19.90 Unspecified osteoarthritis, unspecified site; I10 Essential (primary) hypertension; E78.00 Pure hypercholesterolemia, unspecified; Z79.899 Other long term (current) drug therapy; Z79.82 Long term (current) use of aspirin; Z79.84 Long term (current) use of oral hypoglycemic drugs; Z87.891 Personal history of nicotine dependence; Z95.5 Presence of coronary angioplasty implant and graft; Z95.0 Presence of cardiac pacemaker

== ENCOUNTER → 2017-02-28 | Outpatient (CLI) | payer MEDICARE, OTHER ==
[~2017-02-28] MED LIST changes: +LIDOCAINE 2% MDV 20 ML VIAL As Ordered ONE; +LIDOCAINE W/EPINEPHRINE 1% 20ML VIAL As Ordered ONE; +MIDAZOLAM INJ 2 MG/2 ML VIAL (J2250) As Ordered ONE; -NS 1,000 ML IV ONE; -PROPOFOL 200 MG/20 ML VIAL As Ordered ONE; +SODIUM BICARBONATE 4 % INJ 2.4MEQ 5 ML VIAL (THIS HAS A PRESERVATIVE) As Ordered ONE; +ceFAZolin 1GM INJ (J0690) As Ordered ONE; +fentaNYL 100 MCG/2 ML INJECTION (J3010) As Ordered ONE
--- NOTE | 2017-02-28 16:42 | REPKIM ---
CLINICAL HISTORY: Metastatic colon ca. The referring service has asked a chest [id number] placement for chemotherapy. PROCEDURE PERFORMED: Placement of totally implantable venous access device under combined sonographic and fluoroscopic guidance INTERVENTIONALIST: Jacques Talbot MD FEED MILL TENDER: Nadia Lugo DO CONSENT: The risks, benefits and alternatives to the procedure were explained to the patient and informed written consent was obtained. MEDICATIONS: Local Lidocaine, Ancef 1g IV, Versed IV and Fentanyl IV. SEDATION: Anxiolytic conscious sedation using Versed 1.0 mg IV and Fentanyl 50 mcg IV; starting time at 1337 and end at 1445. Independent trained observer was present during the entire duration of the conscious sedation for monitoring. EBL: 10 mL FLUORO TIME: 0.8 minutes DEVICE USED: [place] 8-[place], Single-Lumen Lot#[id number] PROCEDURE/FINDINGS: The patient was brought to the interventional radiology suite and was positioned supine on the table. Time out procedure was performed. Real time ultrasound was used and permanent image stored. The right IJ vein is patent and compressible. Using ultrasound guidance the internal jugular vein was accessed with a micropuncture needle, after infiltration of the skin and deep tissues with local anesthetic. A peel-away sheath was placed. The catheter tip was inserted via the sheath under controlled respiration. The sheath was removed, and the catheter was flushed with heparinized saline and clamped. Next attention was turned to creation of a subcutaneous pocket for the port along the upper chest. The overlying skin and deep tissues were infiltrated with local anesthetic. A transverse skin incision was made long enough to accommodate the reservoir, and using blunt dissection a subcutaneous pocket was created. A tunnel was created from the pocket to the access site. A clamp was advanced from the pocket incision to the venous access site and used to grasp the free end of the catheter and pull it through to the pocket incision. The catheter was trimmed, attached to the reservoir, and flushed with heparinized saline. The reservoir was inserted into the pocket and secured with 2-0 absorbable sutures. The deep tissue was closed with interrupted 2-0 Vicryl suture. The skin incision was closed with a running subcuticular suture of 4-0 Vicryl. The venotomy incision was closed with 4-0 Vicryl suture. Mastisol and Steri-Strips were applied. The port was then accessed and Heparin (100 units/mL concentration) locked in the port. A sterile dressing was then applied. Post procedure chest spot film radiograph showed the tip of the catheter is at the cavoatrial junction. The patient tolerated the procedure well with no immediate complications. This procedure was performed using ultrasound and fluoroscopy. Dr. Talbot was present. IMPRESSION: 1. The right IJ vein is patent and compressible. 2. Successful placement of right IJ chest port placement as discussed above. The chest [id number] is ready for use. cc: Christina Andrade MD [facility]
== END | disposition home or self-care (01) ==
LOC: M IRPRO 12:11
PROVIDERS: ATTEND Internal Medicine Medical Oncology
DX: C18.9 Malignant neoplasm of colon, unspecified (principal)
CPT/HCPCS: 36561; 76937; 77001; 99152; 99153; C1788; C1894; J0690; J2250; J3010

== ENCOUNTER → 2017-03-29 | Outpatient (REF) | payer MEDICARE, OTHER ==
[~2017-03-29] MED LIST changes: +ACET30TAB PO; +ASPI325T24 PO; -ASPI32ECTA PO; +ATEN25TA PO; -ATOR40TA PO; +ATOR40TA75 PO; -AUGM875T27 PO; +AUGM875T28 PO; +BACT800T5 PO; +FLOM5CAP PO; -LIDOCAINE 2% MDV 20 ML VIAL As Ordered ONE; -LIDOCAINE W/EPINEPHRINE 1% 20ML VIAL As Ordered ONE; -MIDAZOLAM INJ 2 MG/2 ML VIAL (J2250) As Ordered ONE; -ONDA1TAB15 PO; +ONDA4TAB5 PO; +OXYCO5TA GT; -SODIUM BICARBONATE 4 % INJ 2.4MEQ 5 ML VIAL (THIS HAS A PRESERVATIVE) As Ordered ONE; -ceFAZolin 1GM INJ (J0690) As Ordered ONE; -fentaNYL 100 MCG/2 ML INJECTION (J3010) As Ordered ONE
== END ==
LOC: M LAB REF 13:09
PROVIDERS: ATTEND Internal Medicine Medical Oncology
DX: C18.9 Malignant neoplasm of colon, unspecified (principal)

== ENCOUNTER → 2017-04-13 | Outpatient (CLI) | payer MEDICARE, OTHER ==
[~2017-04-13] MED LIST changes: +LIDOCAINE 2% MDV 20 ML VIAL As Ordered ONE; +LIDOCAINE W/EPINEPHRINE 1% 20ML VIAL As Ordered ONE
--- NOTE | 2017-04-25 23:49 | RO ---
DATE OF PROCEDURE: 04/13/2017 PREPROCEDURE DIAGNOSIS: Right internal jugular vein Port-a-Cath. POSTPROCEDURE DIAGNOSIS: Right internal jugular vein Port-a-Cath. PROCEDURE: Right internal jugular vein Port-a-Cath removal. ATTENDING SURGEON: Renea Silverman MD [employer]NAGER: ANESTHESIA: Local. ESTIMATED BLOOD LOSS: Minimal. IV FLUIDS: None. COMPLICATIONS: None. DRAINS: None. SPECIMENS: None. IMPLANTS: None. INDICATION: Patient is a 86-year-old male with history if colon cancer and placement of a right internal jugular Port-a-Cath who no longer requires the Port-a-Cath and will undergo removal of the Port-a-Cath. Risks, benefits, and alternative treatment options were discussed with the patient. Alternative treatment options included, but were not limited to no intervention. Risks included, but were not limited to, infection, bleeding, pneumothorax, hemothorax, possible need for further open surgical intervention, cerebrovascular accident, myocardial infarction, pulmonary embolus, deep venous thrombosis (DVT), loss of limb, loss of life, and poor outcome. Patient understands, accepts these risks, and consents to proceed. DESCRIPTION OF PROCEDURE: Patient was taken to the angiography suite and placed supine on the angiography room table and then prepped and draped in a standard surgical fashion. A time out was completed with all the staff in the room confirming the correct patient, procedure and laterality. The skin overlying the port was then anesthetized with 2% lidocaine after which the old incision was opened using a scalpel. Dissection was carried down to the port which was then easily removed and the catheter was removed from the internal jugular vein and measured 26 cm in length. Hemostasis was obtained after which the deeper layers were closed with #2-0 Vicryl and the skin closed with #4-0 Monocryl in a running subcuticular fashion. Steri-Strips and dressings were applied. The patient tolerated the procedure well. All instruments, sponge and needle counts were correct at the end of the case. There were no complications. Dr. Silverman was present for and directed the entire case. Patient was transferred to the holding area and subsequently discharged in stable condition.
== END | disposition home or self-care (01) ==
LOC: M RADPRO 06:46 → M IRPRO 06:46
PROVIDERS: ATTEND Internal Medicine Medical Oncology
DX: Z45.2 Encounter for adjustment and management of vascular access device (principal); Z85.038 Personal history of other malignant neoplasm of large intestine

== ENCOUNTER 2017-04-23 19:07 | Inpatient (IN) | payer MEDICARE, OTHER ==
[~2017-04-23] VITALS: Ht 177.8 cm; Wt 90.1 kg
[~2017-04-23 19:07] MED LIST changes: -ACET30TAB PO; -ATEN25TA PO; -BACT800T5 PO; -FLOM5CAP PO; -LIDOCAINE 2% MDV 20 ML VIAL As Ordered ONE; -LIDOCAINE W/EPINEPHRINE 1% 20ML VIAL As Ordered ONE; -OXYCO5TA GT
[2017-04-23] MEDS ORDERED: ATEN25TA PO (19:29)
[2017-04-23 20:50] LABS: BASO % 0.6 % (0.0-1.0); EOS # 0.2 K/mm3 (0.0-0.50); EOS % 2.3 % (0.0-3.0); LARGE UNSTAINED CELL # 0.1 K/mm3 (0.0-0.4); LARGE UNSTAINED CELL % 1.6 % (0.0-4.0); LYMPH # 1.2 K/mm3 (1.5-4.5); LYMPH % 12.1 % (24.0-44.0); MEAN CORPUSCULAR HEMOGLOBIN 31.5 pg (27.0-33.0); MEAN CORPUSCULAR HGB CONC 33.7 g/dl (32.0-36.5); MEAN CORPUSCULAR VOLUME 93.6 fl (80.0-96.0); MONO # 0.7 K/mm3 (0.0-0.8); MONO % 7.4 % (0.0-5.0); NEUTROPHILS # 6.7 K/mm3 (1.8-7.7); NEUTROPHILS % 76.1 % (36.0-66.0); PLATELET COUNT, AUTOMATED 188 k/mm3 (150-450); RED CELL DISTRIBUTION WIDTH 16.3 % (11.5-14.5); WHITE BLOOD COUNT 8.8 K/mm3 (4.0-10.0)
[2017-04-23] MEDS: HumaLOG INSULIN (NovoLOG) PER UNIT SC SCH (21:00)
[2017-04-23 21:08] LABS: ANION GAP 10 MEQ/L (8-16); BLOOD UREA NITROGEN 16 MG/DL (7-18); CALCIUM LEVEL 8.7 MG/DL (8.8-10.2); CARBON DIOXIDE LEVEL 26 MEQ/L (21-32); CHLORIDE LEVEL 105 MEQ/L (98-107); CREATININE FOR GFR 0.82 MG/DL (0.70-1.30); GLOMERULAR FILTRATION RATE > 60.0 (>35); GLUCOSE, FASTING 167 MG/DL (83-110); SODIUM LEVEL 141 MEQ/L (136-145)
[2017-04-23 21:10] LABS: ERYTHROCYTE SEDIMENTATION RATE 47 mm/hr (0-20)
--- NOTE | 2017-04-23 22:00 | REPUSA ---
CLINICAL HISTORY: possible abscess right upper chest wall. TECHNIQUE: Realtime sonographic images were obtained in multiple projections. COMMENTS: Note is made of a 4.1 x 0.9 x 3.1 cm fluid collection in the right upper chest wall compatible with a n abscess. Otherwise negative study. IMPRESSION: 4.1 x 0.9 x 3.1 cm fluid collection in the right upper chest wall compatible with an abscess. Consid er aspiration. Thank you for your kind referral of this patient.
[2017-04-23] MEDS ORDERED: PIPERACILLIN/TAZOBACTAM SOD 3.375 GM in D5W MINI-BAG PLUS 50 ML IV ONE (22:15)
[2017-04-23] MEDS ORDERED: VANCOMYCIN HCL 1,000 MG, VIAL MATE ADAPTER 1 EACH in D5W 250 ML IV ONE (22:15)
[2017-04-23] MEDS ORDERED: DEXTROSE 50% 50 ML SYRINGE IV PRN (23:45)
[2017-04-23] MEDS ORDERED: ACETAMINOPHEN TAB 650MG DOSE (2X325MG) PO PRN (23:45)
[2017-04-23] MEDS ORDERED: PERCOCET 5MG/325MG TAB PO PRN (23:45)
[2017-04-23] MEDS ORDERED: GLUCOSE 4 GM CHEW TABLET PO PRN (23:45)
[2017-04-23] MEDS ORDERED: GLUCAGON FOR INJ 1 MG VIAL (J1610) SC PRN (23:45)
[2017-04-23] MEDS ORDERED: MORPHINE 2 MG/ML 1ML SYRINGE IV PRN (23:45)
[2017-04-23] MEDS ORDERED: ONDANSETRON 4MG/2ML VIAL (J2405) IV PRN (23:45)
[2017-04-23] MEDS ORDERED: OXYCO5TA GT (23:46)
[2017-04-23] MEDS ORDERED: ONDA4TAB5 PO (23:46)
[2017-04-24] MEDS ORDERED: oxyCODONE 5MG TAB GT PRN (00:15)
--- NOTE | 2017-04-24 00:44 | PHACANCOPD ---
PHARMACY VANCOMYCIN DOSING Pt Demographics Demographics Patient Age:86 , Weight:93.180 , Gender: male Adjusted Body Weight Date: 04/24/17, Adjusted Body Weight: [81] Kg Events Past 24 Hours Events Past 24 Hours: NO: Dialysis, Diuretic Therapy, Change in CrCl, Fever, Elevation in WBC, Pending Diagnostics, Pending Procedures, Other Vancomycin Vancomycin Target Ranges: 15-20 mcg/ml Vancomycin Load Y/N: Yes Load Dose Date Time Vancomycin Load Dose: 2000MG Date: 04-24 Time: 0200 Vancomycin Dose Date: 04/24/17. Current Vancomycin Dose: [1000MG Q8H] Intermittent Dosing?: No Labs Labs Item Value Date Time White Blood Count 8.8 K/mm3 04/23/172039 Creatinine 0.82 MG/DL 04/23/172039 Blood Urea Nitrogen 16 MG/DL 04/23/172039 Vital Signs Label Value Date Time Patient Temperature 97.0 degrees F 04/24/17 0012 Temperature Source Oral 04/24/17 0012 Micro Microbiology 04/23/17 Blood Culture, Received Pending 04/23/17 Blood Culture, Received Pending 04/23/17 Gram Stain, Received Pending 04/23/17 Wound Culture, Received Pending Creatinine Clearance Date:04/24/17. Creatinine Clearance: [69]. Pending Labs Trough 08-07 @1700 Assessment and Plan Maintaining Current Dose?: Yes Reason for dose change: No Dose Change Pharmacist Note Pharmacist Note Date: 04/24/17. Pharmacist note:Dosed at 1000mg q8h with a trough ordered for 08- 07 @1700. Will continue to monitor and make adjustments as needed. KRIS [facility] Apr 24, 2017 00:44
[2017-04-24] MEDS: ATORVASTATIN 20 MG TAB PO SCH ×2 (01:39→20:28)
[2017-04-24] MEDS: ASPIRIN ENTERIC 325 MG TAB PO SCH ×2 (01:41→20:28)
[2017-04-24] MEDS: DOCUSATE SODIUM 100 MG CAP PO SCH ×3 (01:41→20:28)
[2017-04-24] MEDS: VANCOMYCIN HCL 1,000 MG, VIAL MATE ADAPTER 1 EACH in D5W 250 ML IV SCH ×3 (01:42→18:13)
[2017-04-24] MEDS: HEPARIN SOD (PORCINE) 5000 UNITS/ML VIAL SC SCH ×4 (01:42→21:06)
[2017-04-24] MEDS: PIPERACILLIN/TAZOBACTAM SOD 3.375 GM in D5W MINI-BAG PLUS 50 ML IV SCH ×3 (05:32→21:05)
[2017-04-24 06:00] VITALS: BP 137/76
[2017-04-24 06:06] LABS: MEAN CORPUSCULAR HEMOGLOBIN 31.2 pg (27.0-33.0); MEAN CORPUSCULAR HGB CONC 33.3 g/dl (32.0-36.5); MEAN CORPUSCULAR VOLUME 93.6 fl (80.0-96.0); RED CELL DISTRIBUTION WIDTH 16.6 % (11.5-14.5); WHITE BLOOD COUNT 6.2 K/mm3 (4.0-10.0)
[2017-04-24 06:22] LABS: ANION GAP 8 MEQ/L (8-16); BLOOD UREA NITROGEN 13 MG/DL (7-18); CALCIUM LEVEL 8.4 MG/DL (8.8-10.2); CARBON DIOXIDE LEVEL 26 MEQ/L (21-32); CHLORIDE LEVEL 110 MEQ/L (98-107); CREATININE FOR GFR 0.78 MG/DL (0.70-1.30); GLOMERULAR FILTRATION RATE > 60.0 (>35); GLUCOSE, FASTING 126 MG/DL (83-110); POTASSIUM SERUM 3.7 MEQ/L (3.5-5.1); SODIUM LEVEL 144 MEQ/L (136-145)
--- NOTE | 2017-04-24 06:42 | HPE ---
DATE OF ADMISSION: 04/23/2017 PRIMARY CARE PROVIDER: Mack Rothman PA-C, Oncologist-Dr. Andrade, Telephone Solicitor-Dr. Mckeon, Gastrointestinal (GI)-Dr. Allen. CHIEF COMPLAINT: Right chest wall pain, status post port removed approximately one week ago. HISTORY OF PRESENT ILLNESS: Mr. Regan is an 86-year-old gentleman with known history of colorectal cancer with metastasis coming to the hospital with his caregiver and has noticed swelling, redness and warmth of the area involving the upper right chest wall where he had his port removed approximately one week ago. He denies having any fevers. He has felt chilled but no rigors. No change in appetite. No nausea, vomiting, denies productive sputum or cough, no chest pain. He was seen in urgent care earlier today and they were able to express some purulent material which when he presented to the emergency department we were able to send for wound culture, as well as blood cultures and he was started on Zosyn and vancomycin. He had an elevated C-reactive protein (CRP) and the hospitalist was called for evaluation for an admission. PAST MEDICAL HISTORY: 1. Colorectal cancer with liver metastases (mets). 2. Diabetes. 3. Hypertension. 4. Hyperlipidemia. 5. Seasonal allergic rhinitis. PAST SURGICAL HISTORY: 1. Coronary artery bypass grafting (CABG). 2. Cataracts. 3. Skin cancer involving the right ear. 4. Pacer placement. 5. Appendectomy. 6. Liver biopsy. 7. Port placement and recent port removal. FAMILY HISTORY: Noncontributory due to his advanced age. SOCIAL HISTORY: The patient quit smoking about 50 years. No alcohol. No recent travel. No sick contacts. ALLERGIES: No known drug allergies. HOME MEDICATIONS: - aspirin 325 mg daily - Lipitor 40 mg daily - glimepiride 1 mg daily - Claritin 10 mg daily - Metformin 500 mg two tablets every evening - Ramipril 10 mg daily REVIEW OF SYSTEMS: CONSTITUTIONAL: He has had chills but denies fevers, rigors and denies decreased appetite. HEENT: Denies headache, lightheadedness, dizziness blurry vision, double vision or tinnitus. No difficulty with speech or swallow. PULMONARY: He denies productive sputum cough or hemoptysis. CARDIOVASCULAR: He denies substernal chest pain. No paroxysmal nocturnal dyspnea (PND), orthopnea. No lower extremity edema. SKIN: He does have erythema, swelling and warmth to touch involving the right upper chest wall at the site where the port was removed. GI: No nausea, vomiting, diarrhea. Bowel movements have been regular. He denies any bladder hematochezia or melena. GENITOURINARY (): No dysuria, frequency or hematuria. MUSCULOSKELETAL: No bone loss or joint pain swelling or erythema. NEUROLOGY: Denies paresthesias or paralysis. ENDOCRINE: Positive for diabetes. No history of thyroid disorder. LYMPHATICS: No lumps, bumps, swelling in neck, axilla or groin. No night sweats. No weight loss. HEMATOLOGY: He denies bleeding or bruising disorder. No history of venous thromboembolism. ONCOLOGY: Positive for colorectal cancer with liver metastasis. He has been seeing Dr. Andrade and recently decided that he was no longer going to take chemotherapy. Dr. Andrade has given him a prognosis of less than a year; however, he did not feel that the patient qualified for hospice at this time. His last carcinoembryonic antigen (CEA) was in the 240s, the daughters requested that we repeat this to see where he is at. PSYCHIATRIC: No history of depression. He denies suicidal ideation or audio or visual hallucinations. 10-point review of systems complete, pertinent positives are listed. PHYSICAL EXAMINATION: VITAL SIGNS: Temperature 98.4, pulse 80, respiratory rate 18, blood pressure (BP) 126/75, SPO2 is 98% on room air. GENERAL: The patient appears to be in no acute distress. He is alert, oriented. HEENT: Unremarkable. LUNGS: Clear. HEART: Regular rhythm. ABDOMEN: Soft, nontender. Positive bowel sounds. No masses or rebound. EXTREMITIES: No edema or calf tenderness. NEUROLOGY: Cranial nerves II-XII grossly intact. Examination of the anterior chest wall just below the right clavicle does show an area of erythema approximately 3-4 cm in diameter. He does have a central punctate area with some minimal bloody discharge. Minimal purulence is noted. The area has been outlined with a surgical pen and the redness does already appear to be retracting from the other perimeter. LABORATORY DATA/DIAGNOSTICS: White count is 8.8, hemoglobin 12.9, platelets are 188,000. Sodium is 141, potassium 4.0, chloride 105, bicarb 26, anion gap 10. BUN 0.16, creatinine 0.82, glucose 167, lactic acid 1.4, CRP is 1.91. Sed rate is 47. Again, blood cultures pending times two. Wound culture is pending as well. Ultrasound of the chest wall does show a 4.1 x 0.9 x 3.1 cm fluid collection of the right upper chest wall compatible with possible abscess, waiting hear back from general surgery possibly to have this drained. IMPRESSION: Mr. Regan is a pleasant 86-year-old gentleman who presents to the emergency department who unfortunately has a diagnosis of metastatic colorectal cancer. He had his port removed approximately a week ago and within the last two days started developing some pain, swelling, redness and what appears to be an abscess underneath the site where he had the port. He is no longer receiving chemotherapy and has elected to forego any further treatment for his metastatic disease. At any rate he does appear to have cellulitis with underlying abscess involving the right upper chest wall. PROBLEM LIST: 1. Cellulitis with possible underlying abscess. 2. Diabetes. 3. Colorectal cancer with metastasis. 4. Hypertension. 5. Hyperlipidemia. 6. Seasonal allergic rhinitis. PLAN: The patient is admitted to med-surg per Dr. Madden. Will continue with intravenous (IV) Zosyn and vancomycin, symptomatic treatment. Reach out to general surgery for possible consult and drainage/needle aspiration. Continue his home medications with the exception of his oral antidiabetic medications which we will cover him with sliding scale. Wound cultures, blood cultures are pending. Deep venous thrombosis (DVT) prophylaxis with subcutaneous heparin. DISPOSITION: We will make the patient an inpatient since he did have elevated CRP. He currently does not have any active signs of sepsis.
[2017-04-24] MEDS: ATENOLOL 25 MG TAB PO SCH (08:17)
[2017-04-24] MEDS: RAMIPRIL 5 MG CAP PO SCH (08:17)
[2017-04-24] MEDS: HumaLOG INSULIN (NovoLOG) PER UNIT SC SCH ×4 (08:18→20:27)
[2017-04-24 14:00] VITALS: BP 108/63
--- NOTE | 2017-04-24 15:04 | IPN ---
DATE OF VISIT: 04/24/2017 SUBJECTIVE: Patient seen and examined in the room today. Patient stated his abscess was ruptured and they tried to drain it in the emergency room and at urgent care before. Still experiencing some pain where he had the abscess. He denies any fever or chills. Denies any nausea or vomiting. OBJECTIVE: VITAL SIGNS: Temperature 97.1, pulse is 80, respirations 17, blood pressure 137/76, pulse oximetry 96% in room air. GENERAL: No signs of acute distress. Alert and oriented times three. HEENT: Normocephalic, atraumatic. Extraocular motors grossly intact. CARDIOVASCULAR: Positive S1 and S2, regular rate. LUNGS: Clear to auscultation bilaterally. ABDOMEN: Soft, nontender, nondistended. Bowel sounds present. MUSCULOSKELETAL: There is swelling and erythema at located on the right front upper chest with a small open wound. The skin lesion border is marked with surgical marker. I tried to manually palpate around the open wound. Did have some mild purulent discharge mixed with blood, but I cannot appreciate any significant fluctuance around the area. EXTREMITIES: No edema. No signs of cyanosis. LABORATORY DATA: WBC 6.2, hemoglobin 11.7, hematocrit 35, platelet count 155. Sodium 144, potassium 3.7, chloride 110, carbon dioxide 26, BUN 13, creatinine 0.73, GFR greater than 60, fasting glucose 126, calcium 8.4, C-reactive protein 1.58. ASSESSMENT/PLAN: 1. Right anterior chest abscess. The abscess was ruptured and drained in the emergency room. Borders were circled with a surgical marker. The patient was started on empiric antibiotics with vancomycin and Zosyn. Waiting for the wound cultures. General surgeon, Dr. Birch, has been consulted. The wound culture preliminary shows Staphylococcus Aureus. I will wait for the sensitivities. Blood culture is pending times two sets. The lesion was where the patient had an Infusaport for his chemotherapy previously. The port was removed approximately 11 days ago and as per the patient, the infection started shortly after the catheter removal. 2. Colon cancer with metastases. Patient had metastases to the liver. Patient has received two doses of chemotherapy from Dr. Andrade, however the patient did developed severe reaction to the chemotherapy and the patient decided to stop the treatments. The patient understands that his cancer will be untreated and he will have a poor prognosis. Patient is a DO NOT RESUSCITATE, DO NOT INTUBATE. 3. Diabetes. Patient is covering with sliding scale. Will follow with A1c. Patient will be on a consistent carbohydrate diet. 4. Hypertension. Blood pressure is in the satisfactory range. Patient is taking ramipril 10 mg by mouth daily. Patient is also on atenolol 25 mg by mouth daily. 5. Hyperlipidemia. On atorvastatin 40 mg by mouth at bedtime. 6. Allergic rhinitis. 7. History of coronary artery disease status post coronary artery bypass grafting (CABG). On aspirin, atenolol, ramipril, and atorvastatin. 8. Deep vein thrombosis (DVT) prophylaxis, on heparin.
[2017-04-24 22:00] VITALS: BP 125/63
--- NOTE | 2017-04-24 23:37 | PHACANCOPD ---
PHARMACY VANCOMYCIN DOSING Pt Demographics Demographics Patient Age:86 , Weight:90.400 , Gender: male Adjusted Body Weight Events Past 24 Hours Events Past 24 Hours: NO: Dialysis, Diuretic Therapy, Change in CrCl, Fever, Elevation in WBC, Pending Diagnostics, Pending Procedures, Other Vancomycin Vancomycin Target Ranges: 15-20 mcg/ml Vancomycin Load Y/N: Yes Load Dose Date Time Vancomycin Load Dose: 2000MG Date: 04-24 Time: 0200 Vancomycin Dose Date: 04/24/17. Current Vancomycin Dose: [1000MG IV Q8H DUE 18:00] Intermittent Dosing?: No Labs Labs Laboratory Tests Test 04/24/17 16:53 Vancomycin Level Trough 11.4 UG/ML (10.0-20.0) Laboratory Tests 04/24/17 05:50 Red Blood Count 3.74, Mean Corpuscular Volume 93.6, Mean Corpuscular Hemoglobin 31.2, Mean Corpuscular Hemoglobin Concent 33.3, Red Cell Distribution Width 16.6 04/24/17 05:51 Calcium Level 8.4 Micro Microbiology 04/23/17 Blood Culture - Preliminary, Resulted No growth after 24 hours . All specim... 04/23/17 Blood Culture - Preliminary, Resulted No growth after 24 hours . All specim... 04/23/17 Wound Culture - Preliminary, Resulted Staphylococcus Aureus Creatinine Clearance Date:04/24/17. Creatinine Clearance: [69]. Assessment and Plan Maintaining Current Dose?: Yes Reason for dose change: Other Pharmacist Note Pharmacist Note Date: 04/24/17. Pharm.D. NOTE: VANCO 1GM IV Q8H 3rd DOSE TROUGH = 11.4 mcg/ml (GOAL 15-20 mcg/ml). PATIENT IS AN 86YO MALE, 90KG in WEIGHT. WE WILL CONTINUE WITH HIS CURRENT DOSE AND ALLOW NURSING TO ADMINISTER HIS 18:00 DOSE. AT THAT POINT WE WILL RESCHEDULE HIS DOSING PATTERN TO RESTART AT MIDNIGHT TONIGHT (a 2 hr reduction). ONCE HE IS AT STEADY STATE WILL WILL ORDER A REPEAT VANCO TROUGH. MARYANNE HERRERA PHARMACY Apr 24, 2017 23:37
[2017-04-25] MEDS: VANCOMYCIN HCL 1,000 MG, VIAL MATE ADAPTER 1 EACH in D5W 250 ML IV SCH ×2 (00:01→08:15)
[2017-04-25] MEDS: PIPERACILLIN/TAZOBACTAM SOD 3.375 GM in D5W MINI-BAG PLUS 50 ML IV SCH (05:10)
[2017-04-25] MEDS: HEPARIN SOD (PORCINE) 5000 UNITS/ML VIAL SC SCH (05:11)
[2017-04-25 06:35] LABS: MEAN CORPUSCULAR HEMOGLOBIN 31.6 pg (27.0-33.0); MEAN CORPUSCULAR VOLUME 95.7 fl (80.0-96.0); RED CELL DISTRIBUTION WIDTH 16.1 % (11.5-14.5); WHITE BLOOD COUNT 5.5 K/mm3 (4.0-10.0)
[2017-04-25 06:48] LABS: ANION GAP 4 MEQ/L (8-16); BLOOD UREA NITROGEN 12 MG/DL (7-18); CALCIUM LEVEL 8.7 MG/DL (8.8-10.2); CARBON DIOXIDE LEVEL 29 MEQ/L (21-32); CHLORIDE LEVEL 110 MEQ/L (98-107); CREATININE FOR GFR 0.87 MG/DL (0.70-1.30); GLOMERULAR FILTRATION RATE > 60.0 (>35); GLUCOSE, FASTING 140 MG/DL (83-110); POTASSIUM SERUM 4.3 MEQ/L (3.5-5.1); SODIUM LEVEL 143 MEQ/L (136-145)
[2017-04-25 08:14] VITALS: BP 121/63
[2017-04-25] MEDS: DOCUSATE SODIUM 100 MG CAP PO SCH (08:14)
[2017-04-25] MEDS: ATENOLOL 25 MG TAB PO SCH (08:14)
[2017-04-25] MEDS: HumaLOG INSULIN (NovoLOG) PER UNIT SC SCH (08:14)
[2017-04-25] MEDS: RAMIPRIL 5 MG CAP PO SCH (08:14)
[2017-04-25 08:31] LABS: CARCINOEMBRYONIC ANTIGEN 21.7 NG/ML (<2.5)
[2017-04-25] MEDS ORDERED: BACT800T5 PO (13:12)
--- NOTE | 2017-04-25 19:22 | DS.PDOC ---
Discharge Summary General Date of Admission Apr 23, 2017 at 23:39 Date of Discharge 04/25/17 Specialist/Consultants Involve Dr. Birch of surgery Discharge Summary PROCEDURES PERFORMED DURING STAY: None. ADMITTING DIAGNOSES: 1. . Right upper chest wall abscess following chemotherapy port removal DISCHARGE DIAGNOSES: 1. . Right upper chest wall abscess following chemotherapy port removal COMPLICATIONS/CHIEF COMPLAINT: Cellulitis Of Chest Wall. HISTORY OF PRESENT ILLNESS: . 86-year-old male with past medical history of diabetes, hypertension, dyslipidemia, seasonal allergic rhinitis, CAD, and colorectal cancer with liver metastases who follows with Dr. Andrade, status post 2 rounds of chemotherapy. The patient subsequently decided to forego any further chemotherapy treatment as he states that he developed a horrible rash and that he did not want to go through with any more treatment thereafter. The patient subsequently had his chemotherapy port removed about 7 days prior to his presentation to the ER. The patient then developed pain in the right upper chest wall where he had the port removed. He did present to urgent care and they were able to express some purulent material, and he was advised to go to the ER. The patient subsequently presented to the ER here for further evaluation and management. In the ER, the patient had further purulent material expressed from the former chemotherapy port site. An ultrasound of the chest wall revealed a fluid collection in the right upper chest wall compatible with an abscess. The patient did have cultures and blood cultures drawn. Empiric IV antibiotics were started and the patient was admitted to the hospitalist service for further evaluation and management. During hospitalization, the patient was seen by Dr. Birch of surgery, who recommended warm compresses for 15 minutes 3 times a day. The patient's wound site as well as the surrounding erythema/induration markedly improved during hospitalization. Blood cultures were noted to be negative. Wound cultures were noted to be susceptible to Bactrim. The patient was subsequently transitioned from IV vancomycin and Zosyn to Bactrim by mouth. In addition, the patient has remained afebrile with a normal white count. His inflammatory markers have also trended downward. At this time, the patient states that he is feeling much better and he is eager to return home due to unfortunate of his brother yesterday. I have discussed the case with Dr. Birch of surgery, who agrees with transition of by mouth antibiotics and discharge home with 3 times a day warm compresses. I have advised the patient and his family member who is at the bedside about monitoring the wound and caring for it as per the surgeon's recommendations. If the patient was to become febrile or his wound was to get worse with purulent drainage he has been advised to return to the ER. The patient has also been advised to follow-up with his primary care physician within one week for further evaluation and management. DISCHARGE MEDICATIONS: Please see below. ALLERGIES: Please see below. PHYSICAL EXAMINATION ON DISCHARGE: VITAL SIGNS: Please see below. GENERAL: Awake, alert, oriented 3 HEENT: Normocephalic, atraumatic NECK: No JVD CARDIOVASCULAR EXAMINATION: Normal rate, normal rhythm RESPIRATORY EXAMINATION: Clear to auscultation bilaterally ABDOMINAL EXAMINATION: Soft, nontender, nondistended EXTREMITIES: No lower extremity swelling or tenderness SKIN: 3 cm horizontal wound noted across, 0.5 cm in opening noted at the right upper chest wall. Draining minimal serous fluid upon palpation and expression. No tenderness to palpation. Area of erythema around the wound noted to be significantly decreased compared to previous demarcation. Decreasing induration noted inferior to the wound. LABORATORY DATA: Please see below. IMAGING: CLINICAL HISTORY: possible abscess right upper chest wall. TECHNIQUE: Realtime sonographic images were obtained in multiple projections. COMMENTS: Note is made of a 4.1 x 0.9 x 3.1 cm fluid collection in the right upper chest wall compatible with an abscess. Otherwise negative study. IMPRESSION: 4.1 x 0.9 x 3.1 cm fluid collection in the right upper chest wall compatible with an abscess. Consider aspiration. PROGNOSIS: Long-term prognosis poor given colorectal cancer with metastases, and no chemotherapy. This was discussed with the patient at the bedside ACTIVITY: As tolerated. DIET: . As tolerated DISCHARGE PLAN: Home DISPOSITION: 01 Home, Self-Care. DISCHARGE INSTRUCTIONS: 1. . Follow-up with primary care physician within one week 2. . Complete trial of antibiotics 3. . Return to ER if symptoms persist or worsen DISCHARGE CONDITION: Stable. TIME SPENT ON DISCHARGE: Greater than 30 minutes. Vital Signs/I&Os Vital Signs Date Time Temp Pulse Resp B/P (MAP) Pulse Ox O2 Delivery O2 Flow Rate FiO2 04/25/17 08:20 Room Air 04/25/17 08:14 121/63 04/25/17 08:14 69 04/24/17 22:00 98.2 18 95 I&O- Last 24 Hours up to 6 AM 04/25/17 06:00 Intake Total 1580 ml Output Total 1000 ml Balance 580 ml Laboratory Data Labs 24H Laboratory Tests 2 04/24/17 20:13: Bedside Glucose (Misc Panel) 201H 04/25/17 06:18: Anion Gap 4L, Glomerular Filtration Rate > 60.0, Estimated Mean Plasma Glucose 157H, Hemoglobin A1c 7.1H, Blood Urea Nitrogen 12, Creatinine 0.87, Sodium Level 143, Potassium Level 4.3, Chloride Level 110H, Carbon Dioxide Level 29, Calcium Level 8.7L, C-Reactive Protein, Quantitative 1.15H 04/25/17 11:58: Bedside Glucose (Misc Panel) 150H CBC/BMP Laboratory Tests 04/25/17 06:18 Red Blood Count 3.91 L, Mean Corpuscular Volume 95.7, Mean Corpuscular Hemoglobin 31.6, Mean Corpuscular Hemoglobin Concent 33.0, Red Cell Distribution Width 16.1 H, Calcium Level 8.7 L FSBS Laboratory Tests Test 04/24/17 20:13 04/25/17 11:58 Range/Units Bedside Glucose (Misc Panel) 201 150 83-110 MG/DL Microbiology Microbiology 04/23/17 Blood Culture - Preliminary, Resulted No growth after 24 hours . All specim... 04/23/17 Blood Culture - Preliminary, Resulted No growth after 24 hours . All specim... 04/23/17 Gram Stain - Final, Complete 04/23/17 Wound Culture - Final, Complete Staphylococcus Aureus Discharge Medications Scheduled Aspirin (Aspirin EC) 325 Mg Tabec, 325 MG PO QHS, (Reported) Atenolol (Atenolol) 25 Mg Tab, 25 MG PO DAILY, (Reported) Atorvastatin Calcium (Atorvastatin Calcium) 40 Mg Tab, 40 MG PO QHS, (Reported) Glimepiride (Glimepiride) 1 Mg Tab, 1 MG PO DAILY, (Reported) Metformin Hydrochloride (Metformin HCl ER) 1,000 Mg Tab, 2,000 TAB PO QPM, ( Reported) WITH DINNER Ramipril (Ramipril) 10 Mg Cap, 10 MG PO DAILY, (Reported) Trimethoprim/Sulfamethoxazole (Bactrim Ds 800-160 mg) 1 Tab Tab, 1 TAB PO BID Scheduled PRN Ondansetron HCl (Ondansetron HCl) 4 Mg Tab, 4 MG PO Q6H PRN for NAUSEA, ( Reported) Oxycodone HCl (Oxycodone HCl) 5 Mg Tab, 5 MG GT Q8H PRN for PAIN, (Reported) Allergies Coded Allergies: No Known Allergies (Verified , 06/01/12) MARTIN GUSMAN MD Apr 25, 2017 19:22
[2017-07-23] MEDS ORDERED: FLOM5CAP PO (11:51)
[2017-07-23] MEDS ORDERED: ACET30TAB PO (16:28)
== END 2017-04-25 14:17 | disposition home or self-care (01) | DRG 315 ==
LOC: M ED 19:07 → M ED INP 23:39 → M MSPAV 04-24 00:33
PROVIDERS: ADMIT Hospitalist; ATTEND Internal Medicine
DX: T82.7XXA Infection and inflammatory reaction due to other cardiac and vascular devices, implants and grafts, initial encounter (principal); L03.313 Cellulitis of chest wall; C18.9 Malignant neoplasm of colon, unspecified; C78.7 Secondary malignant neoplasm of liver and intrahepatic bile duct; E11.9 Type 2 diabetes mellitus without complications; I10 Essential (primary) hypertension; E78.5 Hyperlipidemia, unspecified; J30.2 Other seasonal allergic rhinitis; I25.10 Atherosclerotic heart disease of native coronary artery without angina pectoris; Z95.1 Presence of aortocoronary bypass graft; Z85.828 Personal history of other malignant neoplasm of skin; Z87.891 Personal history of nicotine dependence; Z79.82 Long term (current) use of aspirin; Z79.84 Long term (current) use of oral hypoglycemic drugs; Z79.899 Other long term (current) drug therapy

== ENCOUNTER 2017-07-28 11:28 | Inpatient (IN) | payer MEDICARE, OTHER ==
[~2017-07-28] VITALS: Ht 177.8 cm; Wt 90.9 kg
[~2017-07-28 11:28] MED LIST changes: +ACET30TAB PO; +ATEN25TA PO; +BACT800T5 PO; +FLOM5CAP PO; +OXYCO5TA PO
[2017-07-28] MEDS ORDERED: PANTOPRAZOLE 40MG INJ (PROTONIX) (C9113) IV ONE (12:15)
[2017-07-28] MEDS ORDERED: NS 1,000 ML IV ONE (12:15)
[2017-07-28] MEDS ORDERED: ONDANSETRON 4MG/2ML VIAL (J2405) IV ONE ×2 (12:15→17:00)
[2017-07-28] MEDS ORDERED: MORPHINE 4 MG/ML 1ML SYRINGE IV PRN (12:15)
[2017-07-28 12:41] LABS: BASO # 0.1 10^3/uL (0.0-0.2); BASO % 0.8 % (0.0-1.0); EOS # 0.1 10^3/uL (0.0-0.50); EOS % 0.5 % (0.0-3.0); IMMATURE GRANULOCYTE % 1.4 % (0-0); LYMPH # 0.7 10^3/uL (1.5-4.5); LYMPH % 5.7 % (24.0-44.0); MEAN CORPUSCULAR HEMOGLOBIN 31.6 pg (27.0-33.0); MEAN CORPUSCULAR HGB CONC 34.1 g/dl (32.0-36.5); MEAN CORPUSCULAR VOLUME 92.7 fl (80.0-96.0); MONO # 1.1 10^3/uL (0.0-0.8); MONO % 8.5 % (0.0-5.0); NEUTROPHILS # 10.4 10^3/uL (1.8-7.7); NEUTROPHILS % 83.1 % (36.0-66.0); PLATELET COUNT, AUTOMATED 212 10^3/uL (150-450); RED CELL DISTRIBUTION WIDTH 13.5 % (11.5-14.5); WHITE BLOOD COUNT 12.5 10^3/uL (4.0-10.0)
[2017-07-28 13:08] LABS: ALBUMIN 3.2 GM/DL (3.2-5.2); ALBUMIN/GLOBULIN RATIO 0.71 (1.00-1.93); ALKALINE PHOSPHATASE 235 U/L (45-117); ALT/SGPT 100 U/L (12-78); ANION GAP 5 MEQ/L (8-16); AST/SGOT 254 U/L (7-37); BILIRUBIN,DIRECT 0.6 MG/DL (0.0-0.2); BILIRUBIN,TOTAL 3.2 MG/DL (0.2-1.0); BLOOD UREA NITROGEN 21 MG/DL (7-18); CALCIUM LEVEL 9.4 MG/DL (8.8-10.2); CARBON DIOXIDE LEVEL 31 MEQ/L (21-32); CHLORIDE LEVEL 100 MEQ/L (98-107); CREATININE FOR GFR 0.83 MG/DL (0.70-1.30); GLOMERULAR FILTRATION RATE > 60.0 (>35); GLUCOSE, FASTING 196 MG/DL (83-110); SODIUM LEVEL 136 MEQ/L (136-145); TOTAL PROTEIN 7.7 GM/DL (6.4-8.2)
[2017-07-28] MEDS ORDERED: ISOVUE-370 76% 100ML VIAL (Q9967) As Ordered ONE (13:17)
[2017-07-28] MEDS ORDERED: TRAM50TA2 PO (14:31)
[2017-07-28] MEDS ORDERED: ZOFR4TAB3 PO (14:33)
--- NOTE | 2017-07-28 14:53 | REP ---
CT ABDOMEN PELVIS WITH IV CONTRAST: 07/28/2017 COMPARISON: 01/17/2017 CLINICAL HISTORY: Abdominal pain with history of colon carcinoma and liver metastatic disease. TECHNIQUE: A bolus of 100 mL Isovue-370 given. Scanning through the abdomen/pelvis with coronal and sagittal reconstructions and with delayed scan through the liver with reconstructions as well. FINDINGS: CT ABDOMEN: Lung bases show dependent atelectatic changes. No definite infiltrate. Trace effusion on the right. Heart is enlarged. There are sternotomy wires. Left atrial and ventricular enlargement noted. No pericardial thickening or effusion. No hiatal hernia. I see no splenomegaly or focal splenic lesion. The liver shows lobulated margins, and there are numerous hypodense masses in the liver with peripheral enhancement and some nodular central areas of enhancement. The largest in the right hepatic lobe about 5.8 cm transverse, previously 4.8 cm on the 01/2017 exam. All lesions present appear to have increased in size and there may be some new lesions as well. They are more prominently delineated in the delayed images. I would estimate 40-50% by volume of the liver is replaced by tumor. This is progressive disease. No biliary dilatation. No ascites. There are a few small calcified gallstones with dependent gallbladder. Pancreas unremarkable. Adrenal glands are normal. Stomach collapsed without a mass. Small bowel loops are not dilated. There is no infiltration, nodularity, mass, or adenopathy in the mesentery. No periaortic or retroperitoneal nodes. Moderate stool in the right colon and hepatic flexure through the transverse colon. Splenic flexure and left colon smaller caliber, but no stricture or mass. The left colon was grossly intact as well. No fluid in the peroneal gutters. No sign of perforation or free air abdomen or pelvis on lung window review of all CT slices. Bone windows show advanced degenerative changes at L5-S1 disc space. The other disc space heights and all vertebral body heights are intact. Posterior elements with degenerative facet changes. Visualized ribs intact. CT PELVIS: Degenerative change of the hips and lumbosacral junction, pelvis, sacrum, and hips without destructive lesion or fracture. Kidneys show symmetric enhancement. There are cysts bilaterally. The largest in the lower pole on the left as before up to 5 cm, exophytic. The distal left colon, sigmoid, and rectum were without colitis or diverticulitis. No stricture or mass. Prostate is significantly enlarged, as before. It has calcifications and indents the bladder base. No mass in the retrorectal space. No pelvic free fluid or adenopathy. No inguinal or ventral hernia nor inguinal adenopathy. IMPRESSION: 1. Progressive metastatic disease in the liver with the number and size of lesions in the liver having increased over the past 6 months. I would estimate that the disease burden in the liver is in the range of 40-50% of the liver by volume with metastatic lesions. I do not see lesions in the spleen, adrenal glands, kidneys, nor is there intra-abdominal or pelvic adenopathy. No abdominal or pelvic ascites. 2. No ventral or inguinal hernia nor pathologic sized inguinal adenopathy. 3. Moderate stool cecum to transverse colon with the left colon showing less stool, but no colitis or diverticulitis and distally the colon with some scattered diverticula but no inflammatory change. 4. Enlarged prostate, unchanged. No pelvic ascites, adenopathy, or mass. No acute bony abnormality. Signed by Balwinder Landers MD 07/28/2017 05:46 P
[2017-07-28] MEDS ORDERED: PERCOCET 5MG/325MG TAB PO ONE (16:45)
[2017-07-28] MEDS ORDERED: NS 1,000 ML IV SCH (17:00)
[2017-07-28] MEDS ORDERED: MORPHINE 4 MG/ML 1ML SYRINGE IV ONE (17:00)
[2017-07-28] MEDS ORDERED: SCOPOLAMINE 1.5 MG TRANSDERMAL TD PRN (17:45)
[2017-07-28] MEDS ORDERED: LORazepam 1 MG TAB PO PRN (17:45)
[2017-07-28] MEDS ORDERED: BISACODYL 10 MG SUPP PR PRN (17:45)
[2017-07-28] MEDS ORDERED: ONDANSETRON 4MG/2ML VIAL (J2405) IV PRN (17:45)
[2017-07-28] MEDS ORDERED: FLEET ENEMA PR PRN (17:45)
[2017-07-28] MEDS ORDERED: LR 1,000 ML IV SCH (17:45)
[2017-07-28] MEDS ORDERED: LORazepam 2 MG/ML VIAL (J2060) IV PRN (17:45)
[2017-07-28] MEDS ORDERED: ACET1TAB16 PO (17:47)
[2017-07-28] MEDS: ATENOLOL 25 MG TAB PO SCH (18:00)
[2017-07-28 20:02] VITALS: BP 151/79
[2017-07-28] MEDS: MORPHINE 10MG/0.5ML ORAL CONCENTRATE SOLUTION U/D SL PRN (21:12)
--- NOTE | 2017-07-28 22:09 | HPE ---
DATE OF ADMISSION: 07/28/2017 PRIMARY CARE PROVIDER: Mack Rothman ONCOLOGIST: Dr. Andrade CARDIOLOGY: Dr. Mckeon HAND BUNCH MAKER: Dr. Allen CHIEF COMPLAINT: Abdominal pain, nausea, vomiting, poor oral intake. 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 Was found to have worsening liver metastasis on CT scan. Furthermore, patient had attempted two sessions of chemotherapy in January 2017. Did not tolerate it and subsequently decided not to proceed with any chemotherapy regimen. Patient denies any chest pain, pressure, or discomfort. Reports generalized weakness. Denies any fevers, chills, shortness of breath. Goals of care have been discussed with the family. In the emergency room it was determined that the patient would like to be on hospital care, given patient does not want any additional treatment for cancer. Subsequently, medical order for life-sustaining treatment (MOLST) as filled out. Patient was made comfort measures only. ALLERGIES: No known drug allergies. PAST MEDICAL HISTORY: 1. Colorectal cancer, metastasis to the liver. 2. Diabetes mellitus. 3. Hypertension. 4. Dyslipidemia. 5. Allergic rhinitis. 6. Coronary artery disease . PAST SURGICAL HISTORY: 1. Coronary artery bypass graft (CABG). 2. Cataracts. 3. Skin cancer involving right ear. 4. Pacemaker placement. 5. Appendectomy. 6. Liver biopsy. 7. Placement of chemotherapy port. Removal of chemotherapy port. FAMILY HISTORY: Noncontributory to advanced age. SOCIAL HISTORY: Patient quit smoking 50 years ago. No alcohol drinking. No illicit drug use. No recent travel. REVIEW OF SYSTEMS: Reported abdominal pain, generalized weakness, poor oral intake, nausea, vomiting. As per patient, nausea and vomiting started after taking Tylenol with codeine. Patient also reported hard of hearing. Further history limited. HOME MEDICATIONS: - Tylenol with codeine every 6 hours as needed - aspirin 325 mg by mouth daily - atenolol 25 mg by mouth every evening - Lipitor 40 mg by mouth at bedtime - glimepiride 1 mg by mouth daily - metformin 2000 mg every evening - oxycodone 5 mg by mouth at bedtime - ramipril 10 mg by mouth at bedtime - Flomax 0.4 mg by mouth daily PHYSICAL EXAMINATION: VITAL SIGNS: Temperature 97.2, pulse 71, respirations 16, blood pressure 154/73, pulse oximetry 95% on room air. GENERAL: Patient alert, mildly lethargic in no acute distress. HEENT: Normocephalic, atraumatic. PULMONARY: Bilaterally clear to auscultation. CARDIAC: Regular, S1, S2. ABDOMEN: Epigastric tenderness, severe, with rebound and guarding. Positive bowel sounds. EXTREMITIES: No clubbing, cyanosis, or edema. LABORATORY DATA: WBC 12.5, hemoglobin and hematocrit 15.2/44.6, platelets 212. Chemistry: Sodium 136, potassium 4, chloride 100, bicarbonate 31, BUN 21, creatinine 0.8. Bilirubin 3.2. 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 1. Colon cancer with metastasis to the liver with abdominal pain. Lipase negative. CT scan appreciated. Case discussed with patient and family. Patient does not want any additionally treatment in the form of chemoradiation. Chemotherapy port had been removed during the last hospital admission. Option of comfort measures has been discussed. Patient currently elected to be DO NOT RESUSCITATE, DO NOT INTUBATE, comfort measures only. Pain medication has been ordered, antiemetics, hospice consultation. Family would like the patient to be on intravenous (IV) hydration for overnight given patient had significant nausea and vomiting prior and will discontinue IV fluids after 24 hours. Medical order for life-sustaining treatment (MOLST) form done at the bedside. 2. Diabetes mellitus. Given patient's current comfort measures only, will hold metformin and glimepiride. Given unable to assess sugars and fingersticks and unable to assess further kidney function and patient with poor oral intake, placement of patient with oral hypoglycemia agents will put in danger of hypoglycemia. Elect to keep to off of diabetic medication at this point. 3. Hypertension. Continue atenolol. Holding angiotensin-converting enzyme (MARY) inhibitors. Will monitor the patient and discuss with the family further the indications of keeping the patient on the blood pressure medication. 4. Dyslipidemia, holding statin given transaminitis given secondary to liver metastasis. 5. Benign prostatic hypertrophy (BPH). Continue current medication. 6. Deep vein thrombosis (DVT) prophylaxis. Thromboembolic deterrents (TEDs) and sequentials. 7. Coronary artery disease, holding aspirin given patient currently comfort measures only. Continue beta poonam given patient is hypertensive. Will assess and see how the patient is doing. DISPOSITION: Pending hospice consultation, acute care planning. TIME SPENT: 35 minutes.
[2017-07-29 00:10] VITALS: BP 151/79
[2017-07-29] MEDS: MORPHINE 10MG/0.5ML ORAL CONCENTRATE SOLUTION U/D SL PRN ×2 (00:10→06:17)
[2017-07-29] MEDS: TAMSULOSIN 0.4 MG CAP PO SCH (08:19)
[2017-07-29] MEDS: SENOKOT S TAB PO SCH (08:19)
--- NOTE | 2017-07-29 11:44 | IPNPDOC ---
Text Note Date of Service The patient was seen on 07/29/17. 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 Was found to have worsening liver metastasis on CT scan. Furthermore, patient had attempted two sessions of chemotherapy in January 2017. Did not tolerate it and subsequently decided not to proceed with any chemotherapy regimen. Patient denies any chest pain, pressure, or discomfort. Reports generalized weakness. Denies any fevers, chills, shortness of breath. Goals of care have been discussed with the family. In the emergency room it was determined that the patient would like to be on hospital care, given patient does not want any additional treatment for cancer. Subsequently, medical order for life-sustaining treatment (MOLST) as filled out. Patient was made comfort measures only. ALLERGIES: No known drug allergies. PAST MEDICAL HISTORY: 1. Colorectal cancer, metastasis to the liver. 2. Diabetes mellitus. 3. Hypertension. 4. Dyslipidemia. 5. Allergic rhinitis. 6. Coronary artery disease . PAST SURGICAL HISTORY: 1. Coronary artery bypass graft (CABG). 2. Cataracts. 3. Skin cancer involving right ear. 4. Pacemaker placement. 5. Appendectomy. 6. Liver biopsy. 7. Placement of chemotherapy port. Removal of chemotherapy port. FAMILY HISTORY: Noncontributory to advanced age. SOCIAL HISTORY: Patient quit smoking 50 years ago. No alcohol drinking. No illicit drug use. No recent travel. REVIEW OF SYSTEMS: Reported abdominal pain, generalized weakness, poor oral intake, nausea, vomiting. As per patient, nausea and vomiting started after taking Tylenol with codeine. Patient also reported hard of hearing. Further history limited. HOME MEDICATIONS: - Tylenol with codeine every 6 hours as needed - aspirin 325 mg by mouth daily - atenolol 25 mg by mouth every evening - Lipitor 40 mg by mouth at bedtime - glimepiride 1 mg by mouth daily - metformin 2000 mg every evening - oxycodone 5 mg by mouth at bedtime - ramipril 10 mg by mouth at bedtime - Flomax 0.4 mg by mouth daily PHYSICAL EXAMINATION: VITAL SIGNS: Temperature 97.2, pulse 71, respirations 16, blood pressure 154/73, pulse oximetry 95% on room air. GENERAL: Patient alert, mildly lethargic in no acute distress. HEENT: Normocephalic, atraumatic. PULMONARY: Bilaterally clear to auscultation. CARDIAC: Regular, S1, S2. ABDOMEN: Epigastric tenderness, severe, with rebound and guarding. Positive bowel sounds. EXTREMITIES: No clubbing, cyanosis, or edema. LABORATORY DATA: WBC 12.5, hemoglobin and hematocrit 15.2/44.6, platelets 212. Chemistry: Sodium 136, potassium 4, chloride 100, bicarbonate 31, BUN 21, creatinine 0.8. Bilirubin 3.2. 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 1. Colon cancer with metastasis to the liver with abdominal pain. Lipase negative. CT scan appreciated. Case discussed with patient and family. Patient does not want any additionally treatment in the form of chemoradiation. Chemotherapy port had been removed during the last hospital admission. Option of comfort measures has been discussed. Patient currently elected to be DO NOT RESUSCITATE, DO NOT INTUBATE, comfort measures only. Pain medication has been ordered, antiemetics, hospice consultation. Medical order for life-sustaining treatment (MOLST) form done at the bedside. 2. Diabetes mellitus. Given patient's current comfort measures only, will hold metformin and glimepiride. Given unable to assess fingersticks and unable to assess further kidney function and patient with poor oral intake, placement of patient with oral hypoglycemia agents will put in danger of hypoglycemia. Elect to keep to off of diabetic medication at this point. 3. Hypertension. hold bp meds 4. Dyslipidemia, holding statin given transaminitis given secondary to liver metastasis. 5. Benign prostatic hypertrophy (BPH). Continue current medication. 6. Deep vein thrombosis (DVT) prophylaxis. Thromboembolic deterrents (TEDs) and sequentials. 7. Coronary artery disease, holding aspirin given patient currently comfort measures only. DISPOSITION: Pending hospice consultation, Acute care planning 40 min. VS,Fishbone, I+O VS, Fishbone, I+O Laboratory Tests 07/28/17 12:19 Red Blood Count 4.81, Mean Corpuscular Volume 92.7, Mean Corpuscular Hemoglobin 31.6, Mean Corpuscular Hemoglobin Concent 34.1, Red Cell Distribution Width 13.5 , Neutrophils (%) (Auto) 83.1 H, Lymphocytes (%) (Auto) 5.7 L, Monocytes (%) ( Auto) 8.5 H, Eosinophils (%) (Auto) 0.5, Basophils (%) (Auto) 0.8, Neutrophils # (Auto) 10.4 H, Lymphocytes # (Auto) 0.7 L, Monocytes # (Auto) 1.1 H, Eosinophils # (Auto) 0.1, Basophils # (Auto) 0.1 Vital Signs Date Time Temp Pulse Resp B/P (MAP) Pulse Ox O2 Delivery O2 Flow Rate FiO2 07/29/17 06:51 18 07/29/17 00:10 99.6 64 151/79 91 Room Air EPI STEWART MD Jul 29, 2017 11:44
[2017-07-29] MEDS: ATENOLOL 25 MG TAB PO SCH (17:45)
[2017-07-29] MEDS: MORPHINE 2 MG/ML 1ML SYRINGE IV PRN (18:29)
[2017-07-30] MEDS: MORPHINE 2 MG/ML 1ML SYRINGE IV PRN ×3 (01:04→18:58)
[2017-07-30] MEDS: TAMSULOSIN 0.4 MG CAP PO SCH (08:58)
[2017-07-30] MEDS: SENOKOT S TAB PO SCH (08:58)
--- NOTE | 2017-07-30 10:19 | IPNPDOC ---
Text Note Date of Service The patient was seen on 07/30/17. NOTE Patient seen and examined. reported epigastric abd pain improved. no n/v/sob/ cp. Reproted poor oral intake PHYSICAL EXAMINATION: GENERAL: Patient alert, mildly lethargic in no acute distress. HEENT: Normocephalic, atraumatic. PULMONARY: Bilaterally clear to auscultation. CARDIAC: Regular, S1, S2. ABDOMEN: Epigastric tenderness, severe, with rebound and guarding. Positive bowel sounds. EXTREMITIES: No clubbing, cyanosis, or edema. 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 1. Colon cancer with metastasis to the liver with abdominal pain. Lipase negative. CT scan appreciated. Patient currently elected to be DO NOT RESUSCITATE, DO NOT INTUBATE, comfort measures only. Pain medication has been ordered, antiemetics, hospice consultation. [facility] order for life-sustaining treatment (MOLST) form done at the bedside. 2. Diabetes mellitus. Given patient's current comfort measures only, will hold metformin and glimepiride. Given unable to assess fingersticks and unable to assess further kidney function and patient with poor oral intake, placement of patient with oral hypoglycemia agents will put in danger of hypoglycemia. Elect to keep to off of diabetic medication at this point. 3. Hypertension. hold bp meds 4. Dyslipidemia, holding statin given transaminitis given secondary to liver metastasis. 5. Benign prostatic hypertrophy (BPH). Continue current medication. 6. Deep vein thrombosis (DVT) prophylaxis. Thromboembolic deterrents (TEDs) and sequentials. 7. Coronary artery disease, holding aspirin given patient currently comfort measures only. DISPOSITION: Pending hospice consultation, Sarah AVILA, I+O VSSarah, I+O Vital Signs Date Time Temp Pulse Resp B/P (MAP) Pulse Ox O2 Delivery O2 Flow Rate FiO2 07/30/17 01:20 16 07/29/17 00:10 99.6 64 151/79 91 Room Air EPI STEWART MD Jul 30, 2017 10:19
[2017-07-30] MEDS: DRONABINOL 2.5 MG CAP (MARINOL) PO SCH ×2 (12:48→17:27)
[2017-07-30] MEDS: ATENOLOL 25 MG TAB PO SCH (17:27)
[2017-07-31] MEDS: DRONABINOL 2.5 MG CAP (MARINOL) PO SCH ×3 (08:31→18:17)
[2017-07-31] MEDS: TAMSULOSIN 0.4 MG CAP PO SCH (08:32)
[2017-07-31] MEDS: SENOKOT S TAB PO SCH (08:32)
[2017-07-31] MEDS ORDERED: MORP20SO3 PO (10:21)
[2017-07-31] MEDS ORDERED: HYOS125TA PO (10:21)
[2017-07-31] MEDS ORDERED: DRON2.5C4 PO (10:21)
[2017-07-31] MEDS ORDERED: SENN1TAB2 PO (10:21)
[2017-07-31] MEDS ORDERED: LORA0.5T11 PO (10:21)
[2017-07-31] MEDS ORDERED: ZOFR4TAB3 PO (10:21)
--- NOTE | 2017-07-31 11:59 | DSES ---
DATE OF ADMISSION: 07/28/2017 DATE OF DISCHARGE: 08/01/17 DC delayed 10/20 to home services PRIMARY CARE PROVIDER: CARY Flores ONCOLOGIST: Dr. Andrade MASTER CERTIFIED RV TECHNICIAN: Dr. Mckeon LIBRARY SALES CONSULTANT: Dr. Allen FINAL DIAGNOSES: 1. Colon cancer with metastasis to the liver with intractable abdominal pain. 2. Diabetes mellitus. 3. Hypertension. 4. Dyslipidemia. 5. BPH. 6. Coronary artery disease. 7. History of dehydration. HISTORY OF PRESENT ILLNESS: This is an 86-year-old male patient with underlying medical history of coronary artery disease, colorectal cancer, metastasis to the liver, diabetes, hypertension, dyslipidemia, allergic rhinitis, presented to the hospital with 3 days of progressively worsening abdominal pain, nausea, vomiting , poor oral intake. Was found to have significant worsening liver metastasis on CT scan. Furthermore, patient had attempted two sessions of chemotherapy in January 2017. Did not tolerate it and subsequently decided not to proceed with any. Patient denies any chest pain, pressure, or discomfort. Reports generalized weakness. Denies any fevers, chills, shortness of breath. HOSPITAL COURSE: Goals of care has been discussed with the patient and family. A life-sustaining treatment (MOLST) form was filled out. Given the patient does not want any chemoradiation or surgical management for patient's condition, patient and family elected to keep the patient COMFORT MEASURE ONLY pending hospice. Patient was admitted for hydration overnight, subsequently was made COMFORT MEASURE ONLY with pain medication, antiemetic and anxiolytic. Patient's condition progressively improved. Ensure and Marinol was started for the patient as well. Patient currently is comfortable, ready to be discharged home for palliative care and hospice. DISCHARGE MEDICATION: - Marinol 2.5 mg by mouth premeal - hyoscyamine 0.125 mg by mouth every 4 hours as needed - Ativan 0.5 mg by mouth every 4 hours as needed, anxiety - Roxanol 100 mg in 5 mL, take 0.25 to 1 liters by mouth every 2 hours as needed - Zofran 4 mg by mouth every 4 hours as needed - Senna S 8.5 50 mg two tablets by mouth daily - Flomax 0.4 mg by mouth daily DISCHARGE INSTRUCTION: Patient is instructed to followup his primary care provider in 7 days and hospice in 7 days. Return to the hospital if symptoms worsen. MTDD
[2017-07-31 18:18] VITALS: BP 151/79
[2017-07-31] MEDS: ATENOLOL 25 MG TAB PO SCH (18:18)
[2017-08-01] MEDS: TAMSULOSIN 0.4 MG CAP PO SCH (08:00)
[2017-08-01] MEDS: DRONABINOL 2.5 MG CAP (MARINOL) PO SCH (08:00)
[2017-08-01] MEDS: SENOKOT S TAB PO SCH (08:00)
--- NOTE | 2017-08-01 12:46 | IPNPDOC ---
Text Note Date of Service The patient was seen on 08/01/17. NOTE Patient seen and examined at the bedside. States that he is feeling well, and notes that he is ready to return home. The patient's discharge summary was dictated yesterday on 07/31/[address] Stokes. The patient was kept an extra day to set up hospice at home. There have been no acute events since previous note dictation. Please refer to aforementioned discharge summary for further details of hospitalization. VS,Fishbone, I+O VS, Fishbone, I+O Vital Signs Date Time Temp Pulse Resp B/P (MAP) Pulse Ox O2 Delivery O2 Flow Rate FiO2 07/31/17 18:18 64 151/79 07/30/17 22:42 18 07/29/17 00:10 99.6 91 Room Air I&O- Last 24 Hours up to 6 AM 08/02/17 06:00 Intake Total 0 ml Balance 0 ml MARTIN GUSMAN MD Aug 01, 2017 12:46
== END 2017-08-01 13:05 | disposition hospice, home (50) | DRG 375 ==
LOC: M ED 11:28 → M ED INP 17:51 → M MSPAV 20:02
PROVIDERS: ADMIT Hospitalist; ATTEND Internal Medicine
DX: C19 Malignant neoplasm of rectosigmoid junction (principal); C78.7 Secondary malignant neoplasm of liver and intrahepatic bile duct; Z51.5 Encounter for palliative care; Z66 Do not resuscitate; I25.10 Atherosclerotic heart disease of native coronary artery without angina pectoris; E11.9 Type 2 diabetes mellitus without complications; I10 Essential (primary) hypertension; E78.5 Hyperlipidemia, unspecified; J30.9 Allergic rhinitis, unspecified; Z92.21 Personal history of antineoplastic chemotherapy; Z95.5 Presence of coronary angioplasty implant and graft; Z98.41 Cataract extraction status, right eye; Z98.42 Cataract extraction status, left eye; Z85.828 Personal history of other malignant neoplasm of skin; Z95.0 Presence of cardiac pacemaker; Z87.891 Personal history of nicotine dependence; Z79.84 Long term (current) use of oral hypoglycemic drugs; Z79.899 Other long term (current) drug therapy